=== PATIENT | male | born 1950 | race Hispanic/Latino ===

== ENCOUNTER 2020-01-04 20:37 | Inpatient (IN) | payer OTHER ==
[2020-01-04] MEDS ORDERED: NA CHLORIDE 0.9% 500 ML ONE (20:52)
[2020-01-04 21:11] LABS: Absolute Lymphocytes (CBC) 2.1 K/uL (0.7-4.9); Basophils % 0.8 % (0-1.3); Hematocrit 35.9 % (39.6-49.0); Lymphocytes % 19.4 % (15.3-44.8); MPV 11.3 fL (7.6-11.3); RBC Red Blood Cell Count 4.48 M/uL (4.33-5.43)
[2020-01-04 21:15] LABS: Protime INR 1.18
[2020-01-04 21:52] LABS: BUN Blood Urea Nitrogen 12 mg/dL (7-18); Bicarbonate 27 mmol/L (21-32); Glucose Level 74 mg/dL (74-106); Magnesium 2.4 mg/dL (1.8-2.4); Potassium 3.7 mmol/L (3.5-5.1); Sodium Level 139 mmol/L (136-145)
[2020-01-04 21:54] LABS: Creatine Phosphokinase 9786 U/L (39-308)
--- NOTE | 2020-01-04 22:33 | RAD REPORT ---
EXAM DESCRIPTION: CT - Abdomen Pelvis W Contrast - 01/04/2020 10:08 pm CLINICAL HISTORY: abd pain, lower ext weakness COMPARISON: CTANGIO CHEST FOR PE dated 11/09/2015 TECHNIQUE: Biphasic, helical CT imaging of the abdomen and pelvis was performed following 100 ml non -ionic IV contrast. No oral contrast administered. All CT scans are performed using dose optimization technique as appropriate and may include automated exposure control or mA/KV adjustment according to patient size. FINDINGS: Heart size is upper normal. No pericardial effusion. Left hemidiaphragm elevation is prese nt new from prior imaging. Posterior gutter opacification on the left is present new from prior imagi ng. This is probably chronic atelectasis given the left hemidiaphragm elevation. Infiltrate or mass a re considered unlikely. Trace left pleural effusion. The liver, spleen, and pancreas show no suspicious findings. Well filled gallbladder shows questionab le wall thickening. Upper abdominal motion degradation limits assessment. The 10 millimeter gallstone is evident. Additional stones could be occult. No biliary tree dilatation. Duct stones can be occult . . Symmetric renal function is seen with no hydronephrosis or suspicious renal mass. No pyelonephritis o r acute parenchymal process. A 2.5 centimeter lower pole left renal cyst is present. No urinary bladd er abnormality. No adrenal abnormalities. No gastric dilatation or wall thickening. No small bowel abnormality seen. Acute colon process is not seen. Sigmoid colon is tortuous and redundant extending well into the upper left abdomen. No free air, free fluid or inflammatory stranding. No hernia, mass or bulky lymphadenopathy. No suspicious bony findings. Prominent aortic atherosclerotic calcifications are present. There is mural thrombus causing narrowin g of the infrarenal aortic lumen. Significant left iliac stenoses present. IMPRESSION: No bowel obstruction, free air or surgically emergent finding. At least 1 gallstone is identified. Additional stones could be occult. Gallbladder wall thickening is suspected but limited in evaluation due to significant upper abdominal respiratory motion artifact. No biliary tree abnormality or pancreatic abnormality. Significant left hemidiaphragm elevation new from 2015. Posterior gutter opacification on the left is favored to be chronic atelectasis rather than mass or infiltrate. Prominent aortoiliac atherosclerotic calcifications with left-side iliac significant stenoses present .
[2020-01-04] MEDS ORDERED: NA CHLORIDE 0.9% 1,000 ML ONE (22:53)
[2020-01-04] MEDS ORDERED: CEFTRIAXONE/SWI 1gm 1 GM/10 ML SYR ONE (22:53)
--- NOTE | 2020-01-04 23:11 | ER ---
Nurse's Notes [facility] Name: Jaskaran Rahman Age: 69 yrs Sex: Male : 1950 Arrival Date: 01/04/2020 Time: 20:38 Bed 6 Private MD: Diagnosis: Weakness;Rhabdomyolysis;Streptococcal pharyngitis;Gallbladder wall thickening, borderline, unspecified Presentation: 01/03 20:39 Chief complaint: EMS states: Patient has been falling few times during the day and ao states that his lower extremities are getting weaker. Per EMS patient has fall few time during the day. Coronavirus screen: Proceed with normal triage. Patient denies a cough. Patient denies shortness of breath or difficulty breathing. Patient denies measured and/or subjective temperature greater than 100.4F prior to today's visit. Patient denies travel on a cruise ship or to a country the [facility] currently lists as an affected area. Patient denies contact with known and/or suspected case of COVID-19. Ebola Screen: Patient negative for fever greater than or equal to 101.5 degrees Fahrenheit, and additional compatible Ebola Virus Disease symptoms Patient denies exposure to infectious person. Patient denies travel to an Ebola-affected area in the 21 days before illness onset. Initial Sepsis Screen: Does the patient meet any 2 criteria? No. Patient's initial sepsis screen is negative. Does the patient have a suspected source of infection? No. Patient's initial sepsis screen is negative. Risk Assessment: Do you want to hurt yourself or someone else? Patient reports no desire to harm self or others. Onset of symptoms is unknown. 20:39 Method Of Arrival: EMS: [facility] ao 20:39 Acuity: DARYN 3 ao Triage Assessment: 20:45 General: Appears in no apparent distress. comfortable, well groomed, well developed, ao well nourished, Behavior is calm, cooperative, appropriate for age. Pain: Denies pain. EENT: No signs and/or symptoms were reported regarding the EENT system. Neuro: Level of Consciousness is awake, alert, obeys commands, Oriented to person, place, time, situation, Appropriate for age Weakness Reports weakness General weakness. Cardiovascular: Capillary refill < 3 seconds Patient's skin is warm and dry. Respiratory: Airway is patent Respiratory effort is even, unlabored, Respiratory pattern is regular, symmetrical. GI: Abdomen is non-distended. : No signs and/or symptoms were reported regarding the genitourinary system. Derm: Skin is intact, Skin is dry, Skin is pink, warm \T\ dry. normal, Skin temperature is warm. Musculoskeletal: Reports weakness in Genral weakness. Historical: - Allergies: 20:44 No Known Allergies; ao - Home Meds: 20:44 Unable to obtain [Active]; ao - PMHx: 20:44 Unable to obtain; ao - PSHx: 20:44 Unable to obtain; ao - Immunization history:: Adult Immunizations up to date. - Social history:: Smoking status: Patient/guardian denies using tobacco, Patient/guardian denies using alcohol. - Family history:: not pertinent. - Hospitalizations: : No recent hospitalization is reported. Screenin:45 Abuse screen: Denies threats or abuse. Denies injuries from another. Nutritional ao screening: No deficits noted. Tuberculosis screening: No symptoms or risk factors identified. Fall Risk Fall in past 12 months (25 points). No secondary diagnosis (0 pts). No IV (0 pts). Ambulatory Aid- Crutches/Cane/Walker (15 pts). Gait- Weak (10 pts.). Mental Status- Overestimates/Forgets Limitations (15 pts.). Total Wren Fall Scale indicates High Risk Score (45 or more points). Fall prevention measures have been instituted. Side Rails Up X 2 Placed Close to Nursing Station Frequent Obs/Assessments Occuring As available patient and family educated on Fall Prevention Program and Strategies. Assessment: 20:47 General: See triage assessment. ao 21:30 Reassessment: Patient appears in no apparent distress at this time. Patient is alert, rr5 oriented x 3, equal unlabored respirations, skin warm/dry/pink. swabs done and sent to laboratory awaiting for all the results to come back. no complaints made. 22:50 Reassessment: Patient appears in no apparent distress at this time. Patient is alert, rr5 oriented x 3, equal unlabored respirations, skin warm/dry/pink. ultrasound at bedside. 23:05 Reassessment: Patient appears in no apparent distress at this time. Patient is alert, rr5 oriented x 3, equal unlabored respirations, skin warm/dry/pink. review done by ED provider, advised for admission, patient agreed for the plan of care. Patient states feeling better. 01/04 00:00 Reassessment: Patient appears in no apparent distress at this time. Patient is alert, rr5 oriented x 3, equal unlabored respirations, skin warm/dry/pink. hospitalist at bedside examining the patient. 00:40 Reassessment: Patient appears in no apparent distress at this time. Patient is alert, rr5 oriented x 3, equal unlabored respirations, skin warm/dry/pink. transferred to room 209 awake alert, vital signs stable. no complaints made. Vital Signs: 01/03 20:39 BP 161 / 83; Pulse 85; Resp 16; Temp 98.5(TE); Pulse Ox 100% on R/A; Weight 81.65 kg ao (R); Height 5 ft. 7 in. (170.18 cm) (R); Pain 0/10; 21:45 BP 146 / 77; Pulse 80; Resp 17; Pulse Ox 99% on R/A; rr5 22:30 BP 133 / 70; Pulse 89; Resp 17; Pulse Ox 98% on R/A; rr5 23:50 BP 125 / 70; Pulse 84; Resp 16; Temp 98.4; Pulse Ox 99% on R/A; rr5 01/04 00:35 BP 139 / 71; Pulse 90; Resp 17; Pulse Ox 98% on R/A; rr5 01/03 20:39 Body Mass Index 28.19 (81.65 kg, 170.18 cm) ao ED Course: 01/03 20:00 Inserted saline lock: 20 gauge in left forearm, using aseptic technique. Blood ao collected. 20:38 Patient arrived in ED. ao 20:38 Lucho Rodas MD is Attending Physician. rn 20:43 Triage completed. ao 20:44 Arm band placed on right wrist. Patient placed in an exam room, on a stretcher, on ao pocket marker, on pulse oximetry, Patient notified of wait time. 20:47 Patient has correct armband on for positive identification. instrument repairer on. Pulse ao ox on. NIBP on. 20:50 Kike Yost, RN is Primary Nurse. ao 21:05 Radiology exam delayed due to lab results not completed at this time. (BUN/Creatinine). vm2 21:06 CBC with Diff Sent. ao 21:06 Basic Metabolic Panel Sent. ao 21:06 Ptt, Activated Sent. ao 21:06 Protime (+inr) Sent. ao 21:07 Magnesium Sent. ao 21:07 CK Sent. ao 21:20 Radiology exam delayed due to lab results not completed at this time. (BUN/Creatinine). vm2 21:30 Flu and/or RSV swab sent to lab. Strep swab sent to lab. rr5 22:09 CT Abd/Pelvis - IV Contrast Only In Process Unspecified. EDMS 23:03 US Abdomen Limited In Process Unspecified. EDMS 23:09 Bao Deshpande MD is Hospitalizing Provider. rn 01/04 00:00 No provider procedures requiring assistance completed. Patient admitted, IV remains in rr5 place. intact, No redness/swelling at site. 00:02 Repeat lab(s) drawn. by me, sent to lab. EKG done, by ED staff, reviewed by Lucho weaver MD. 00:04 EKG done, by ED staff, reviewed by Lucho Rodas MD. jd3 Administered Medications: 01/03 21:06 Drug: NS 0.9% 500 ml Route: IV; Rate: bolus; Site: right forearm; ao 21:32 Follow up: Response: No adverse reaction; IV Status: Completed infusion; IV Intake: rr5 500ml 23:10 Drug: NS 0.9% 1000 ml Route: IV; Rate: 125 ml/hr; Site: left antecubital; rr5 01/04 00:16 Follow up: Response: No adverse reaction; IV Status: Infusion continued upon admission; rr5 IV Intake: 125ml 01/03 23:12 Drug: Rocephin - (cefTRIAXone) 1 grams Route: IVPB; Infused Over: 30 mins; Site: left rr5 forearm; 01/04 00:00 Follow up: Response: No adverse reaction; IV Status: Completed infusion; IV Intake: [id number] Intake: 01/03 21:32 IV: 500ml; Total: 500ml. rr5 01/04 00:00 IV: 50ml; Total: 550ml. rr5 00:16 IV: 125ml; Total: 675ml. rr5 Outcome: 01/03 23:10 Decision to Hospitalize by Provider. rn 01/04 00:14 Admitted to Med/surg accompanied by nurse, via stretcher, room 209, with chart, Report rr5 called to anabelle Condition: stable Instructed on the need for admit. 00:56 Patient left the ED. rr5 Signatures: Dispatcher [employer] EDLucho Sharp MD MD rn Ortiz, Alex, RN RN ao McGuire, Victoria 2 Liam Alcantara RN RN jBenjamin Green RN RN rr5 Corrections: (The following items were deleted from the chart) 00:03 00:02 Repeat lab(s) drawn. by me, sent to lab. EKG done, rr5 rr5
--- NOTE | 2020-01-04 23:11 | RAD REPORT ---
EXAM DESCRIPTION: US - Abdomen Exam Limited - 01/04/2020 11:03 pm CLINICAL HISTORY: eval for cholecystitis;Abd pain Abdominal pain COMPARISON: No comparisons FINDINGS: The gallbladder demonstrates tiny punctate calculi. No pericholecystic fluid or gallbladde r wall thickening. The common bile duct is normal measuring 4 mm. The liver demonstrates no findings of intrahepatic biliary dilatation. IMPRESSION: Small sandlike gallstones likely present. No evidence of cholecystitis.
--- NOTE | 2020-01-04 23:11 | EDPHYS ---
Physician Documentation [facility] Name: Jaskaran Rahman Age: 69 yrs Sex: Male : 1950 Arrival Date: 01/04/2020 Time: 20:38 Bed 6 Private MD: ED Physician Lucho Rodas HPI: 01/03 20:54 This 69 yrs old Male presents to ER via EMS with complaints of General rn Weakness. 20:54 Reports all day today feeling weak, reports thighs feel like he has been walking all rn day long but states hasn't done much. No fall or recent trauma. Reports earlier was using bathroom, felt discomfort in abdomen, unable to use bathroom and discomfort went away, so tried to stand up, felt weak, tried to use walker but still weak. Called EMS 3 times today for lift assist, able to ambulate but not able to stand up off ground by himself. No bowel or bladder incontinence or retention, no known back or spinal issues. No IV drug use. No back pain.. Onset: The symptoms/episode began/occurred this morning. Severity of symptoms: At their worst the symptoms were moderate in the emergency department the symptoms are unchanged. The patient has not experienced similar symptoms in the past. The patient has not recently seen a physician. Historical: - Allergies: 20:44 No Known Allergies; ao - Home Meds: 20:44 Unable to obtain [Active]; ao - PMHx: 20:44 Unable to obtain; ao - PSHx: 20:44 Unable to obtain; ao - Immunization history:: Adult Immunizations up to date. - Social history:: Smoking status: Patient/guardian denies using tobacco, Patient/guardian denies using alcohol. - Family history:: not pertinent. - Hospitalizations: : No recent hospitalization is reported. ROS: 20:54 Constitutional: Negative for fever, chills, and weight loss, Eyes: Negative for injury, rn pain, redness, and discharge, Neck: Negative for injury, pain, and swelling, Cardiovascular: Negative for chest pain, palpitations, and edema, Respiratory: Negative for shortness of breath, cough, wheezing, and pleuritic chest pain, Abdomen/GI: Negative for abdominal pain, nausea, vomiting, diarrhea, and constipation, Back: Negative for injury and pain, MS/Extremity: Negative for injury and deformity, Skin: Negative for injury, rash, and discoloration, Neuro: Negative for headache, numbness, tingling, and seizure. Exam: 20:54 Constitutional: This is a well developed, well nourished patient who is awake, alert, rn and in no acute distress. Head/Face: Normocephalic, atraumatic. ENT: dry MM Neck: Trachea midline, no thyromegaly or masses palpated, and no cervical lymphadenopathy. Supple, full range of motion without nuchal rigidity, or vertebral point tenderness. No Meningismus. Cardiovascular: Regular rate and rhythm. No pulse deficits. Respiratory: No increased work of breathing, no retractions or nasal flaring. Abdomen/GI: soft, non-tender Back: No spinal tenderness. No costovertebral tenderness. Full range of motion. MS/ Extremity: Pulses equal, no cyanosis. Neurovascular intact. Full, normal range of motion. Equal circumference. Able to flex and extend at hips and knees normally. No focal tenderness or hemtoma. Neuro: Awake and alert, GCS 15, oriented to person, place, time, and situation. Cranial nerves II-XII grossly intact. Motor strength 4/5 bilateral lower ext, 5/5 upper extremities. Sensory grossly intact. 01/04 00:04 ECG was reviewed by the Attending Physician. rn Vital Signs: 01/03 20:39 BP 161 / 83; Pulse 85; Resp 16; Temp 98.5(TE); Pulse Ox 100% on R/A; Weight 81.65 kg ao (R); Height 5 ft. 7 in. (170.18 cm) (R); Pain 0/10; 21:45 BP 146 / 77; Pulse 80; Resp 17; Pulse Ox 99% on R/A; rr5 22:30 BP 133 / 70; Pulse 89; Resp 17; Pulse Ox 98% on R/A; rr5 23:50 BP 125 / 70; Pulse 84; Resp 16; Temp 98.4; Pulse Ox 99% on R/A; rr5 01/04 00:35 BP 139 / 71; Pulse 90; Resp 17; Pulse Ox 98% on R/A; rr5 01/03 20:39 Body Mass Index 28.19 (81.65 kg, 170.18 cm) ao MDM: 01/03 20:38 Patient medically screened. rn 23:00 ED course: Patient + for strep, elevated CK concerning for rhabdomyolysis given muscle rn aches and weakness. CT showed possible gallbladder wall thickening, u/s performed, no stones seen, no PCF, borderline thickening, but no overt signs of cholecystitis. Will admit for rhabdomyolysis, and further hydration in addition to surgical consult tomorrow for possible early cholecystitis with repeat u/s and labs. . 23:08 Differential Diagnosis rhabdomyolysis, early cholecystitis, dehydration, strep, viral rn syndrome. Data reviewed: vital signs, nurses notes, lab test result(s), radiologic studies, CT scan, ultrasound, and as a result, I will admit patient. Counseling: I had a detailed discussion with the patient and/or guardian regarding: the historical points, exam findings, and any diagnostic results supporting the discharge/admit diagnosis, lab results, radiology results, the need for further work-up and treatment in the hospital. Response to treatment: the patient's symptoms have mildly improved after treatment, and as a result, I will admit patient. Admission orders: after a detailed discussion of the patient's condition and case, the admit orders are written by me. 23:08 ED course: Spoke with Dr. larios, will admit for hydration/rhabdo, and eval further rn tomorrow regarding gallbladder wall thickening and need for surgical consult. . 01/03 20:40 Order name: CBC with Diff; Complete Time: 21:16 rn 01/03 20:40 Order name: Basic Metabolic Panel; Complete Time: 23:38 rn 01/03 20:40 Order name: Protime (+inr); Complete Time: 22:35 rn 01/03 20:40 Order name: Ptt, Activated; Complete Time: 22:35 rn 01/03 20:40 Order name: CK; Complete Time: 23:38 rn 01/03 20:40 Order name: Urine Microscopic Only; Complete Time: 23:38 rn 01/03 20:40 Order name: Magnesium; Complete Time: 23:38 rn 01/03 21:16 Order name: Flu; Complete Time: 22:35 rn 01/03 21:16 Order name: Strep; Complete Time: 22:35 rn 01/03 22:51 Order name: Liver (Hepatic) Function; Complete Time: 23:38 [facility] 01/03 22:51 Order name: Lipase; Complete Time: 23:38 EDMS 01/03 23:39 Order name: Thyroid Stimulating Hormone [facility] 01/03 20:40 Order name: CT Abd/Pelvis - IV Contrast Only; Complete Time: 22:35 rn 01/03 22:41 Order name: US Abdomen Limited; Complete Time: 23:13 rn 01/03 23:38 Order name: Thorax Wo Con [facility] 01/03 23:38 Order name: CONS Pharmacy Consult [facility] 01/03 23:39 Order name: Troponin I [facility] 01/03 23:39 Order name: Lipase [facility] 01/03 23:39 Order name: Creatine Phosphokinase [facility] 01/03 23:39 Order name: Creatine Phosphokinase [facility] 01/03 23:39 Order name: Creatine Phosphokinase [facility] 01/03 23:39 Order name: Creatine Phosphokinase [facility] 01/03 23:40 Order name: NT PRO-BNP [facility] 01/03 23:49 Order name: Urine Dipstick--Ancillary (enter results) [facility] 01/04 00:18 Order name: Urine Dipstick-Ancillary [facility] 01/03 20:40 Order name: IV Start; Complete Time: 21:07 rn 01/03 20:40 Order name: Urine Dipstick-Ancillary (obtain specimen); Complete Time: 23:14 rn 01/03 23:38 Order name: CONS Physician Consult [facility] 01/03 23:38 Order name: CONS Physician Consult [facility] 01/03 23:38 Order name: Occupational Therapy Consult [facility] 01/03 23:38 Order name: Physical Therapy Consult [facility] 01/03 23:53 Order name: EKG; Complete Time: 23:54 rn 01/03 23:53 Order name: EKG - Nurse/Tech; Complete Time: 00:02 rn EC/14 00:04 Rate is 87 beats/min. Rhythm is regular. QRS [place] is Normal. MN interval is normal. QRS rn interval is normal. QT interval is normal. No Q waves. T waves are Normal. No ST changes noted. Clinical impression: Normal ECG. Interpreted by me. Reviewed by me. Administered Medications: 01/03 21:06 Drug: NS 0.9% 500 ml Route: IV; Rate: bolus; Site: right forearm; ao 21:32 Follow up: Response: No adverse reaction; IV Status: Completed infusion; IV Intake: rr5 500ml 23:10 Drug: NS 0.9% 1000 ml Route: IV; Rate: 125 ml/hr; Site: left antecubital; rr5 01/04 00:16 Follow up: Response: No adverse reaction; IV Status: Infusion continued upon admission; rr5 IV Intake: 125ml 01/03 23:12 Drug: Rocephin - (cefTRIAXone) 1 grams Route: IVPB; Infused Over: 30 mins; Site: left rr5 forearm; 01/04 00:00 Follow up: Response: No adverse reaction; IV Status: Completed infusion; IV Intake: [id number] Disposition: 01/04/20 23:10 Hospitalization ordered by Bao Larios for Inpatient Admission. Preliminary diagnosis are Weakness, Rhabdomyolysis, Streptococcal pharyngitis, Gallbladder wall thickening, borderline, unspecified. - Bed requested for Telemetry/MedSurg (Inpatient). - Status is Inpatient Admission. rr5 - Condition is Stable. - Problem is new. - Symptoms have improved. Signatures: Dispatcher [employer] EDCO Willow Cavazos RN RN mw Nieto, Roman, MD MD rn Ortiz, Alex, RN RN ao Roque, Raymond, RN RN rr5 Corrections: (The following items were deleted from the chart) 01/03 22:51 22:37 HEPATIC FUNCTION+C.LAB.BRZ ordered. [facility] EDCO 22:51 22:37 LIPASE+C.LAB.BRZ ordered. [facility] EDCO 23:42 23:10 Hospitalization Ordered by Bao Larios MD for Inpatient Admission. Preliminary mw diagnosis is Weakness; Rhabdomyolysis; Streptococcal pharyngitis; Gallbladder wall thickening, borderline, unspecified. Bed requested for Telemetry/MedSurg (Inpatient). Status is Inpatient Admission. Condition is Stable. Problem is new. Symptoms have improved. rn 01/04 00:56 01/03 23:42 01/04/2020 23:10 Hospitalization Ordered by Bao Larios MD for Inpatient rr5 Admission. Preliminary diagnosis is Weakness; Rhabdomyolysis; Streptococcal pharyngitis; Gallbladder wall thickening, borderline, unspecified. Bed requested for Telemetry/MedSurg (Inpatient). Status is Inpatient Admission. Condition is Stable. Problem is new. Symptoms have improved. mw
[2020-01-04] MEDS ORDERED: HYDRALAZINE HCL 20 MG/ML VIAL IV PRN (23:30)
[2020-01-04] MEDS ORDERED: ALBUTEROL 2.5 MG/3 ML NEB SOL NEB PRN (23:30)
[2020-01-04] MEDS ORDERED: MORPHINE 2 MG/ML SYR IV PRN (23:30)
[2020-01-04] MEDS ORDERED: Oxycodone HCl/Acetaminophen 1 TAB TAB PO PRN (23:30)
[2020-01-04] MEDS ORDERED: ACETAMINOPHEN 325 MG TABLET PO PRN (23:30)
[2020-01-04] MEDS ORDERED: GLUCAGON 1 MG/VIAL IM PRN (23:31)
[2020-01-04 23:32] LABS: Urine Bacteria <20 /HPF (NONE SEEN); Urine Culture Reflex Order NOT NEEDED; Urine RBC NONE SEEN /HPF (NONE SEEN); Urine Urothelial Cells <5 /HPF (NONE SEEN)
[2020-01-04] MEDS ORDERED: ONDANSETRON 4 MG/2 ML VIAL IV PRN (23:34)
[2020-01-04 23:36] LABS: ALT/SGPT 156 U/L (12-78); AST/SGOT 157 U/L (15-37); Alkaline Phosphatase 60 U/L (45-117); Bilirubin Direct 0.2 mg/dL (0-0.2); Bilirubin Total 0.7 mg/dL (0.2-1.0); Lipase 126 U/L (73-393); Protein, Total 6.8 g/dL (6.4-8.2)
--- NOTE | 2020-01-04 23:45 | P.HP ---
Certification for Inpatient With expected LOS: >2 Midnights Patient will require the following post-hospital care: Retirement Practitioner: I am a practitioner with admitting privileges, knowledge of patient current condition, hospital course, and medical plan of care. Services: Services provided to patient in accordance with Admission requirements found in Title 42 Section 412.3 of the Code of Federal Regulations Patient History Date of Service: 01/05/20 Reason for admission: Fall with weakness History of Present Illness: 69-year-old male with past medical history of HTN, systolic CHF-unknown recent EF,s/p prossible CAD ? [place] in 2016, HLD presumed on statin with low-dose gabbi last discharge records admitted because of progressive weakness, difficulty with ambulation, well as recurrent falls requiring 3 EMS visits to get him up from the floor since the last 24 hr . Patient was eventually brought in because of persistent weakness. He denies any fever or cough he denies any chills. He denies any new skin rash. He states he has not seen a physician in the last 4 years. However he takes his 6 meds which were refills sent to his pharmacy since 4 years ago. He is an extremely poor historian. He is unable to tell which medications he actually takes at home and he did not bring them with him.. On presentation he was noted with marked elevated CK level of greater than 9000. He denies abdominal discomfort or pain. He denies any vomiting or diarrhea but admits to transient nausea yesterday. He denies any cough, chest pain or sputum. CT of the abdomen shows multiple gallstones with mild thickening with no direct evidence of acute cholecystitis. Right upper quadrant ulcer sound also showing borderline findings for cholecystitis. Allergies No Known Allergies Allergy (Unverified 11/10/15 17:41) Home Medications: Simvastatin [Zocor] 20 mg PO BEDTIME 11/09/15 Amlodipine [Norvasc] 5 mg PO DAILY 11/10/15 - Past Medical/Surgical History Has patient received pneumonia vaccine in the past: No Diabetic: No -: HTN -: high cholesterol -: unsure if he has coronary artery disease -: hemmoroidectomy 1989 - Family History Father -: Heart disease, Hypertension, Stroke, Cancer Mother -: Other (see notes) Notes: unknown - Social History Smoking Status: Never smoker Alcohol use: No CD- Drugs: No Caffeine use: Yes Place of Residence: Home (He lives by himself) Review of Systems 10-point ROS is otherwise unremarkable Physical Examination - Physical Exam General: Alert, Oriented x3 HEENT: Atraumatic, Normocephalic, PERRLA Neck: Supple, 2+ carotid pulse no bruit Respiratory: Clear to auscultation bilaterally, Normal air movement Cardiovascular: No edema, Normal pulses, Regular rate/rhythm Capillary refill: <2 Seconds Gastrointestinal: Normal bowel sounds, Soft and benign, Non-distended, No ascites, No tenderness Musculoskeletal: No clubbing, No swelling Integumentary: No rashes, No breakdown Neurological: Normal speech, Abnormal gait - Studies Laboratory Data (last 24 hrs) 01/04/20 22:37: Total Bilirubin Cancelled, AST Cancelled, ALT Cancelled, Alkaline Phosphatase Cancelled, Lipase Cancelled 01/04/20 21:00: PT 13.9 H, INR 1.18, APTT 29.2 01/04/20 21:00: Sodium 139, Potassium 3.7, BUN 12, Creatinine 0.56, Glucose 74, Magnesium 2.4, Total Bilirubin 0.7, AST 157 H, ALT 156 H, Alkaline Phosphatase 60, Lipase 126 01/04/20 21:00: WBC 11.0 H, Hgb 11.3 L, Hct 35.9 L, Plt Count 272 Microbiology Data (last 24 hrs): 01/04/20 21:30 Throat Group A Streptococcus Rapid Screen - Final 01/04/20 21:30 Nasopharnyx Influenza Type A Antigen Screen - Final 01/04/20 21:30 Nasopharnyx Influenza Type B Antigen Screen - Final Assessment and Plan - Problems (Diagnosis) (1) Rhabdomyolysis due to statin therapy Current Visit: Yes Status: Acute (2) Cholecystitis Current Visit: Yes Status: Acute - Advance Directives Does patient have a Living Will: No Does patient have a Durable POA for Healthcare: No Physician Review: Patient Assessed, Agree with Above Assessment and Plan Physician Review Additional Text: # Rhabdomyolysis-possibly due to statin therapy and recurrent falls -we will hold Zocor for now he if he is actually on it. -start gentle IV fluid with lactated Ringer's for now -will monitor low glucose levels -will consult Nephrology to follow trend -might need sodium bicarb and p.r.n. Lasix if non improving CK with IV fluid -history of systolic CHF noted, will monitor all volume status and avoid fluid overload # Progressive weakness-unclear etiology, follow tsh -may be due to cholecystitis -obtain troponin as well as stat EKG now Hypertension-we do IV hydralazine p.r.n. History of systolic CHF-might need repeat echo, follow volume status closely Cholelithiasis with possible cholecystitis-will consult surgery -start empirical Rocephin with Flagyl -do clear liquis for now DVT prophylaxis-subcutaneous Lovenox ADVANCED DIRECTIVE-WILL LEAVE FULL CODE
[2020-01-05 00:18] LABS: Urine Blood 2+ (NEG); Urine Glucose NEGATIVE (NEG); Urine Protein NEGATIVE (NEG)
[2020-01-05 00:38] LABS: Thyroid Stimulating Hormone 3.61 uIU/mL (0.360-3.740); Troponin I 0.42 ng/mL (0.0-0.045)
[2020-01-05 01:06] VITALS: BMI 24.9
[2020-01-05] MEDS: Ringers Lactate 1,000 ML IV SCH ×4 (01:27→23:45)
[2020-01-05 04:42] LABS: Absolute Lymphocytes (CBC) 2.5 K/uL (0.7-4.9); Basophils % 0.2 % (0-1.3); Hematocrit 36.4 % (39.6-49.0); Lymphocytes % 24.4 % (15.3-44.8); MPV 11.5 fL (7.6-11.3); RBC Red Blood Cell Count 4.54 M/uL (4.33-5.43)
[2020-01-05 05:25] LABS: ALT/SGPT 143 U/L (12-78); AST/SGOT 133 U/L (15-37); Albumin 2.7 g/dL (3.4-5.0); Alkaline Phosphatase 58 U/L (45-117); BUN Blood Urea Nitrogen 9 mg/dL (7-18); Bicarbonate 25 mmol/L (21-32); Bilirubin Total 0.6 mg/dL (0.2-1.0); Glucose Level 74 mg/dL (74-106); Potassium 3.6 mmol/L (3.5-5.1); Protein, Total 6.6 g/dL (6.4-8.2); Sodium Level 140 mmol/L (136-145); Troponin I 0.39 ng/mL (0.0-0.045)
[2020-01-05 05:36] LABS: Creatine Phosphokinase 7270 U/L (39-308)
[2020-01-05] MEDS: INSULIN -REGULAR HUMAN 50 UNIT/0.5 ML ML SQ SCH ×4 (07:30→21:00)
[2020-01-05] MEDS: D50W 25 GM/50 ML SYRINGE/VIAL IV PRN ×2 (07:38→11:59)
[2020-01-05] MEDS: FAMOTIDINE 20 MG TAB PO SCH ×2 (09:00→21:12)
[2020-01-05] MEDS ORDERED: ASPIRIN EC 81 MG TAB PO SCH (09:00)
[2020-01-05] MEDS ORDERED: ENOXAPARIN 40 MG/0.4 ML SQ SCH (09:00)
--- NOTE | 2020-01-05 11:31 | EKG ---
Test Date: 2020-01-05 Test Time: 00:04:07 Tiller Worker: RR MEASUREMENT RESULTS: Intervals: Rate: 87 MO: 160 QRSD: 96 QT: 374 QTc: 450 [place]: P: 22 MO: 160 QRS: 70 T: 85 INTERPRETIVE STATEMENTS: Normal sinus rhythm Normal ECG Compared to ECG 11/10/2015 07:06:20 Myocardial infarct finding no longer present ST (T wave) deviation no longer present Possible ischemia no longer present Electronically Signed On 01-05-20 11:29:47 CDT by Yovani Remy
--- NOTE | 2020-01-05 11:37 | RAD REPORT ---
EXAM DESCRIPTION: CT abdomen and pelvis with IV contrast CLINICAL HISTORY: 78-year-old male with lower abdominal pain since lunch today; history of previous abdominal surgery for small bowel obstruction in 2018. TECHNIQUE: Axial CT imaging of the abdomen and pelvis was performed following the administration of intravenous contrast.. Sagittal and coronal reconstructed images were then performed. The CT study is perform ed according to ALARA (as low as reasonably achievable) or ALARA/IMAGE GENTLY, with automatic adjustm ent of mA and/or kV according to patient size. Performed on: 01/05/2020 at 12:43 AM. COMPARISON: 01/23/2018 FINDINGS: Lung bases: The lung bases are clear. However, there is a large hiatal hernia containing p ortions of the stomach, multiple small bowel loops as well as portions of the pancreas and omental fa t. Liver: The liver is normal in size and configuration. No focal hepatic abnormalities are identified. Liver attenuation is within normal limits. There is a punctate calcification within the right hepatic lobe near the dome. Spleen: The spleen is surgically absent. There is a small splenule in the left upper quadrant measuri ng approximately 1.8 cm in diameter. Gallbladder and bile duct: The gallbladder is well distended and unremarkable. There is no biliary ductal dilatation. Pancreas: The pancreas is grossly unremarkable. However, a portion of the pancreas extends through th e hiatal hernia. Adrenal Glands: The adrenal glands are normal in size and configuration. Kidneys: The kidneys are normal in size and configuration. There is no evidence of hydronephrosis. Th ere are nonobstructing right renal calculi. No definite solid or cystic renal mass lesions are identi fied. Stomach: The stomach is moderately distended with oral contrast. There is a moderate hiatal hernia as described above. Bowel: There are multiple dilated fluid-filled small bowel loops in the mid to upper abdomen consiste nt with a small bowel obstruction. The transition point appears to be in the mid left hemiabdomen. Th ere is associated mesenteric edema and there is a small amount of free fluid in the pelvis. The dista l small bowel loops are normal in caliber. There appears to be a duodenal diverticulum which partiall y contains air and contrast. There is scattered colonic diverticulosis. Appendix: The appendix is normal. Free air: There is no evidence of free air. Free fluid: There is a small amount of free fluid in the pelvis. Vasculature: The aorta is normal in caliber and contour. The inferior vena cava is grossly unremarkab le. There are atherosclerotic calcifications along the abdominal aorta and proximal iliac and femoral arteries. Lymphadenopathy: No pathologic lymphadenopathy is identified. Bladder: The bladder is well distended and smooth in contour. Reproductive: The prostate gland is mildly enlarged and measures approximately 4.6 x 3.9 cm in cross- sectional diameter. Bones: There are advanced degenerative changes of the thoracolumbar spine. There are old healed fract ures of the pubic rami bilaterally. Soft tissues: There is a small fat-containing supraumbilical ventral abdominal wall hernia. There is a small fat-containing right inguinal hernia similar when compared to the prior study. IMPRESSION: 1. CT findings consistent with a small bowel obstruction. The transition point appears t o be in the mid left hemiabdomen. There is associated mesenteric edema and a small amount of free flu id in the pelvis without definite pneumoperitoneum. 2. Prior splenectomy. 3. Large hiatal hernia containing portions of the stomach, small bowel and pancreas. 4. Nonobstructing right renal calculi. 5. Colonic diverticulosis. 6. Duodenal diverticulum. 7. Advanced degenerative changes of the thoracolumbar spine and old healed pubic rami fractures bilat erally. 8. Grossly stable small fat-containing supraumbilical ventral abdominal wall hernia and fat-containin g right inguinal hernia. These critical findings were discussed with Dr. Rodas on 01/05/2020 at 1:28 AM central time Electronically signed by: Pretty Louise DO 01/05/2020 1:33 AM CDT Due to temporary technical issues with the PACS/Fluency reporting system, reports are being signed by the in house radiologist as a courtesy to ensure prompt reporting. The interpreting radiologist is f ully responsible for the content of the report.
--- NOTE | 2020-01-05 12:23 | CON ---
Date of Consultation: 01/05/2020 Brief History Of Present Illness: Patient is a 69-year-old male with a past medical history of hypertension, systolic congestive heart failure, status post possible OR in 2016, coronary artery disease, hyperlipidemia, on statins who presented to the hospital with recurrent falls, weakness, fa tigue, malaise. He denies any abdominal pain, rashes, any other significant complaints at this time, other than the fatigue and the weakness, however, he admits to not knowing much about his past medic al history as well as not knowing his current medications, his dosages. He has not seen a [facility] physician in over 4 years. He continues to get some medications at home, but cannot remember a ny of them specifically. Past Medical History: As above, hypertension, systolic congestive heart failure, coronary artery dis ease, possible OR, hyperlipidemia. Past Surgical History: Hemorrhoidectomy. Denies any other past surgeries. Allergies: NO KNOWN DRUG ALLERGIES. Home Medications: Include Zocor and Norvasc. Family History: Significant for hypertension, stroke, and cancer in his father. He stopped smoking recently, but cannot recall the details. He denies alcohol or recreational drug use. Review of Systems: A 10-point review of systems other than HPI, denies. Physical Examination: Vital Signs: At the time of my examination were a blood pressure of 143/73, heart rate was 79, respi ratory rate was 20, temperature 97.8. General: At the time of my examination, he was asleep, but arousable. He was oriented, but had very slow mentation. He is oriented to person, place, time, and event, but is very slow mentation and re quires frequent redirection. HEENT: Normocephalic. His sclerae are anicteric. His mucous membranes are moist. His oropharynx i s clear. Neck: Supple. No JVD. Chest: Normal expansion and excursion. Cardiovascular: Regular rhythm. Pulmonary: Clear to auscultation bilaterally. Normal air movement. GI: Soft, nontender, nondistended. No rebound. No guarding. No focal peritonitis. Negative El y sign. Musculoskeletal: No clubbing, cyanosis, edema. Skin: Warm and dry. Laboratory Data: Revealed a white blood cell count of 10.4, his hemoglobin is 11.4, hematocrit 36.4, platelet count is 304. His sodium was 140, potassium 3.6, chloride 107, carbon dioxide 25, BUN 9, c reatinine 0.4, glucose is 74. His calcium was 8.4, total bilirubin 0.7 on admission, 0.6 today, dire ct bilirubin 0.2. AST on admission 157, currently 133, ALT on admission 156, currently 143, alkaline phosphatase is 60 on admission, currently 58. His creatine kinase was 9786, currently 7270. Tropon in I 0.42, currently 0.39 on second check. His proBNP was 2073. His lipase is 117. His UA showed 2 + ketones, 2+ blood, otherwise normal. Imaging Studies: He had imaging performed which included a CT scan of the abdomen as well as an abdo [place] ultrasound. The CT scan was officially read the heart is upper size of normal, no pericardial effusion, left hemidiaphragm elevation is present. New from prior imaging, posterior gutter opacific ation on the left is present, new from prior imaging, probably chronic atelectasis given the left hem idiaphragm elevation. Infiltrate or mass are considered unlikely. Trace left pleural effusion. Christine er, spleen, pancreas, no suspicious findings, well filled gallbladder shows questionable wall thicken ing. Upper abdominal motion in degradation limits. Assessment; 10 mm gallstone is evident. Additio nal stones could be occult, no biliary tree dilatation. Duct stones can be occult. Symmetrical malcolm l function is seen with no hydronephrosis, suspicious renal mass. No pyelonephritis or acute parench ymal process. He has a 2.5 cm lower pole left renal cyst present. No gastric dilatation or wall thi ckening. No small bowel abnormality seen. Acute colonic process is not seen. Sigmoid colon is tort uous and redundant, extending well into the upper left abdomen. No free air, free fluid, or inflamma tory stranding. No hernias, mass, or bulky lymphadenopathy. No suspicious bony findings. Prominent aortic atherosclerotic calcifications are present. Mural thrombus causing narrowing of the infraren al aortic lumen. Significant left iliac stenosis present. His ultrasound was officially read as wel l following the CT scan. The official dictation is, the gallbladder demonstrates tiny punctate calcu li. No pericholecystic fluid or gallbladder wall thickening. The common bile duct is normal at 4 mm . The liver demonstrates no findings of intrahepatic dilatation. Impression is small sandlike galls tones present. No evidence of cholecystitis. Assessment And Plan: This is a 69-year-old male who comes in with vague findings and a possible imag ing finding concerning for cholecystitis, although given the repeat imaging and ultrasound it seems l ess likely given his clinical picture, laboratory findings, and physical exam. However, I will order a HIDA scan as a rule out/corroboration of the other findings. I have explained the risks, benefits , and alternatives of the above stated plan. Additionally, patient to get a chest CT with aortogram for better delineation of his aortoiliac disease. Continue medical management. Hold anticoagulation tomorrow possible if surgical intervention is warranted by the HIDA scan. However, I feel this is l ess likely and as such, we will likely be able to continue medical management unabated by having to h old any medications per the medical team recommendations. JAYSON/DHARMESH Voice ID: [id number] Report ID: [id number]
[2020-01-05] MEDS ORDERED: POTASSIUM CL 40 MEQ in NA CHLORIDE 0.9% 500 ML IV SCH (13:00)
[2020-01-05] MEDS: metroNIDAZOLE 500 MG TABLET PO SCH ×2 (13:08→21:12)
--- NOTE | 2020-01-05 13:30 | RAD REPORT ---
EXAM DESCRIPTION: NM - Hepatobiliary System Imagin - 01/05/2020 1:13 pm CLINICAL HISTORY: rule out cholecystitisabdominal pain, abnormal gallbladder ultrasound and CT study COMPARISON: Ultrasound January 03, CT January 03 TECHNIQUE: The patient was administered 6 mCi Tc99m Choletec . Imaging of the right upper quadrant w as performed initially for up to 60 minutes. Additional delayed imaging 2.5 hours after initial radio pharmaceutical administration was performed. FINDINGS: There is homogeneous uptake of radiopharmaceutical throughout the liver. There is no delay in visualization of the biliary tree or duodenum. Gallbladder never visualizes over the course of the examination. This can be an indicator of acute ch olecystitis in the proper clinical setting. IMPRESSION: Nonvisualization of the gallbladder. This is consistent with acute cholecystitis in the proper clinical setting. No delay in visualization of the biliary tree or duodenum.
--- NOTE | 2020-01-05 14:21 | CON ---
Date of Consultation: 01/05/2020 Reason For Consultation: Elevated BUN and creatinine and rhabdomyolysis. History Of Present Illness: This is a pleasant 69-year-old gentleman with significant past medical h istory of hypertension, congestive heart failure, unknown baseline, coronary artery disease status [place] back in 2019, hyperlipidemia, patient was brought to the hospital because of recurrent falls, f ound to have rhabdomyolysis. Patient was found to be poor compliant with doctor's visit. Upon arriv al to the hospital, patient was found to have significant elevation in CK. Patient was also found to have cholecystitis. Patient was started on IV hydration. Kidney function upon arrival within fay l limit. No proteinuria. Has blood in the urine with negative hematuria. Patient found to have als o elevation in BMP. Patient underwent CT abdomen and pelvis with IV contrast, did not show any hydro nephrosis. Also patient underwent CT chest, again this is with contrast. Past Medical History: 1.Colon artery disease complicated with congestive heart failure, unknown baseline. 2.Hypertension. 3.Hyperlipidemia. Allergies: NO KNOWN DRUG ALLERGIES. Home Medications: Include amlodipine and simvastatin. Past Surgical History: Hernia repair. Family History: Positive for hypertension, CVA. Social History: Denies smoking, denies drinking, denies drugs abuse. Review of Systems: Head and Neck: No red eye. No ear pain. GI: No nausea, no vomiting. : No polyuria, no dysuria, no hematuria. 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 Respiratory: No shortness of breath. Cardiovascular: No chest pain. Endocrine: No polydipsia. Skin: No rash. Neuro: Has recurrent falls. Musculoskeletal: Generalized body ache. Endocrine: No polydipsia. Skin: No rash. Physical Examination: Vital Signs: When I saw the patient, blood pressure 148/65, pulse of 89, afebrile. Patient had good urine output of 400. Chest: Clear to auscultation. Heart: S1, S2 regular. Abdomen: Soft, nontender. Extremities: Trace edema. Neurologic: Alert. Nonfocal. Laboratory Data: Sodium 140, potassium 3.6, bicarb 25, BUN 9, creatinine 0.4, calcium 8.4. CK 7200. TSH of 3.6. Urinalysis; specific gravity of 1.010, negative proteinuria, negative hematuria. Posi tive blood in the urine. Current Medications: 1.Aspirin. 2.Ceftriaxone. 3.Metronidazole. 4.LR at 125 per hour. 5.Pepcid. Assessment And Plan: 1.Rhabdomyolysis secondary to recurrent fall. I agree with current hydration and we will try to est ablish better electrolyte balance. 2.Hypokalemia with the presence of acute rhabdo. We will replace, continue LR for the time being. We will check for magnesium level. 3.Hypertension, controlled optimal. We will resume amlodipine for the patient. 4.Recurrent fall. Follow up with Hospitalist. SHANE Voice ID: [id number] Report ID: [id number]
[2020-01-05 14:24] LABS: Urine Protein/Creatinine Ratio 0.63 ratio (<0.15)
--- NOTE | 2020-01-05 14:26 | P.PN ---
Subjective Date of Service: 01/05/20 Chief Complaint: Fall with weakness Subjective: No new changes, No C/O voiced Physical Examination - Vital Signs Temperature: 97.8 F Blood Pressure: 148/65 Pulse: 89 Respirations: 20 Pulse Ox (%): 97 - Physical Exam General: Alert, In no apparent distress, Oriented x3 HEENT: Atraumatic, Normocephalic Neck: Supple Respiratory: Clear to auscultation bilaterally, Normal air movement Cardiovascular: Normal pulses, Regular rate/rhythm, Normal S1 S2 Gastrointestinal: Normal bowel sounds, Soft and benign, Non-distended Musculoskeletal: No clubbing, No swelling, No contractures, No erythema, No tenderness, No warmth Integumentary: No rashes Neurological: Normal speech, Normal strength at 5/5 x4 extr - Studies Laboratory Data (last 24 hrs) 01/04/20 22:37: Total Bilirubin Cancelled, AST Cancelled, ALT Cancelled, A lkaline Phosphatase Cancelled, Lipase Cancelled 01/04/20 21:00: PT 13.9 H, INR 1.18, APTT 29.2 01/04/20 21:00: Sodium 139, Potassium 3.7, BUN 12, Creatinine 0.56, Glucose 74, Magnesium 2.4, Total Bilirubin 0.7, AST 157 H, ALT 156 H, Alkaline Phosphatase 60, Lipase 126 01/04/20 21:00: WBC 11.0 H, Hgb 11.3 L, Hct 35.9 L, Plt Count 272 Microbiology Data (last 24 hrs): 01/04/20 21:30 Throat Group A Streptococcus Rapid Screen - Final 01/04/20 21:30 Nasopharnyx Influenza Type A Antigen Screen - Final 01/04/20 21:30 Nasopharnyx Influenza Type B Antigen Screen - Final Assessment & Plan - Problems (Diagnosis) (1) Cholecystitis Current Visit: Yes Status: Acute (2) Rhabdomyolysis due to statin therapy Current Visit: Yes Status: Acute (3) Abnormal EKG Onset Date: 11/10/15 Current Visit: No Status: Acute (4) CHF (congestive heart failure) Onset Date: 11/10/15 Current Visit: No Status: Acute (5) Chest pain Onset Date: 11/10/15 Current Visit: No Status: Acute (6) Elevated troponin Onset Date: 11/10/15 Current Visit: No Status: Acute (7) Pulmonary edema Onset Date: 11/10/15 Current Visit: No Status: Acute Physician Review: Patient Assessed, Agree with Above Assessment and Plan Physician Review Additional Text: Assessment Patient is a 69-year-old male with a past medical history of hypertension, hyperlipidemia, systolic heart failure who presented to the [facility] with recurrent falls. Workup in admission included a CT abdomen and chest which incidentally revealed cholelithiasis. He was also found to have rhabdomyolysis with CK level more than 7000. Rhabdomyolysis Progressive lower extremity weakness Hypertension History of systolic heart failure Cholelithiasis Plan: Continue gentle volume repletion with isotonic saline due to history of systolic heart failure Rhabdomyolysis thought to be statin-induced Zocor discontinued upon admission Cardiology has been consulted due to a rising troponin, which is most likely rhabdo induced PT/OT consulted Patient placed on ceftriaxone and Flagyl for possible biliary infection Surgery has been consulted for cholelithiasis. HIDA scan positive for acute cholecystitis. Patient has a benign abdominal exam. The defer surgical plan to General surgery DVT prophylaxis: subcutaneous Lovenox
[2020-01-05] MEDS ORDERED: ALBUTEROL 2.5 MG/3 ML NEB SOL NEB PRN (16:00)
[2020-01-05] MEDS: CEFTRIAXONE/SWI 1gm 1 GM/10 ML SYR IV SCH (21:15)
[2020-01-06] MEDS: Ringers Lactate 1,000 ML IV SCH ×4 (01:07→20:43)
[2020-01-06 04:38] LABS: Absolute Lymphocytes (CBC) 1.4 K/uL (0.7-4.9); Basophils % 1.1 % (0-1.3); Hematocrit 30.4 % (39.6-49.0); Lymphocytes % 18.6 % (15.3-44.8); RBC Red Blood Cell Count 3.78 M/uL (4.33-5.43)
[2020-01-06 05:11] LABS: Albumin 2.2 g/dL (3.4-5.0); BUN Blood Urea Nitrogen 7 mg/dL (7-18); Bicarbonate 27 mmol/L (21-32); Glucose Level 83 mg/dL (74-106); Magnesium 2.1 mg/dL (1.8-2.4); Phosphorus 3.2 mg/dL (2.5-4.9); Potassium 3.4 mmol/L (3.5-5.1); Sodium Level 141 mmol/L (136-145)
[2020-01-06 05:12] LABS: Creatine Phosphokinase 3300 U/L (39-308)
[2020-01-06] MEDS ORDERED: POTASSIUM 25 MEQ EFFERV TAB PO ONE (07:17)
[2020-01-06] MEDS: INSULIN -REGULAR HUMAN 50 UNIT/0.5 ML ML SQ SCH ×4 (07:30→21:00)
[2020-01-06] MEDS ORDERED: AMLODIPINE 5 MG TAB PO SCH (09:00)
--- NOTE | 2020-01-06 09:12 | P.PN ---
Subjective Date of Service: 01/06/20 Chief Complaint: Fall with weakness Subjective: No new changes, Tolerating diet Physical Examination - Vital Signs Temperature: 98.5 F Blood Pressure: 160/69 Pulse: 90 Respirations: 16 Pulse Ox (%): 93 - Physical Exam General: Alert, In no apparent distress, Oriented x3, Cooperative HEENT: Atraumatic, Normocephalic Neck: Supple Respiratory: Clear to auscultation bilaterally, Normal air movement Cardiovascular: No edema, Normal pulses, Regular rate/rhythm, Normal S1 S2, Other (Sternotomy scar) Gastrointestinal: Normal bowel sounds, Soft and benign, Non-distended Musculoskeletal: No clubbing, No swelling, No contractures, No erythema, No tenderness, No warmth Integumentary: No rashes, No breakdown, No significant lesion, No tenderness/swelling, No erythema, No warmth, No cyanosis Neurological: Normal speech, Normal strength at 5/5 x4 extr, Sensation intact - Studies CK 4900---> 3300 Microbiology Data (last 24 hrs): 01/04/20 21:30 Throat Group A Streptococcus Rapid Screen - Final Assessment & Plan - Problems (Diagnosis) (1) Cholecystitis Current Visit: Yes Status: Acute (2) Rhabdomyolysis due to statin therapy Current Visit: Yes Status: Acute (3) Abnormal EKG Onset Date: 11/10/15 Current Visit: No Status: Acute (4) CHF (congestive heart failure) Onset Date: 11/10/15 Current Visit: No Status: Acute (5) Chest pain Onset Date: 11/10/15 Current Visit: No Status: Acute (6) Elevated troponin Onset Date: 11/10/15 Current Visit: No Status: Acute (7) Pulmonary edema Onset Date: 11/10/15 Current Visit: No Status: Acute Physician Review: Patient Assessed, Agree with Above Assessment and Plan Physician Review Additional Text: Assessment Patient is a 69-year-old male with a past medical history of hypertension, hyperlipidemia, systolic heart failure who presented to the hospital with recurrent falls. Workup in admission included a CT abdomen and chest incidentally revealed cholelithiasis. Surgery has been consulted. He was also found to have rhabdomyolysis with CK level more than 7000. Rhabdomyolysis Progressive lower extremity weakness Hypertension History of systolic heart failure Cholelithiasis Plan: Continue gentle volume repletion with isotonic saline due to history of systolic heart failure Rhabdomyolysis thought to be statin-induced Zocor discontinued upon admission Cardiology has been consulted due to a rising troponin, which is most likely rhabdo induced PT/OT consulted Patient placed on ceftriaxone and Flagyl for possible biliary infection Surgery has been consulted for cholelithiasis. HIDA scan positive for acute cholecystitis. Patient has a benign abdominal exam. Diet advanced as tolerated. If post prandial pain, cholecystectomy will be considered DVT prophylaxis: subcutaneous Lovenox
[2020-01-06] MEDS: metroNIDAZOLE 500 MG TABLET PO SCH ×3 (10:12→20:44)
[2020-01-06] MEDS: FAMOTIDINE 20 MG TAB PO SCH ×2 (10:16→20:44)
[2020-01-06] MEDS: POTASSIUM CL 40 MEQ in NA CHLORIDE 0.9% 500 ML IV SCH ×2 (11:00→11:53)
[2020-01-06] MEDS ORDERED: Ringers Lactate 1,000 ML with POTASSIUM CL 40 MEQ IV SCH ×4 (11:00→11:32)
--- NOTE | 2020-01-06 11:36 | P.PN ---
Subjective Date of Service: 01/06/20 Chief Complaint: Fall with weakness Subjective: Improving (Patient has no pain, tolerating diet, no nausea, emesis, normal bowel function) Physical Examination - Vital Signs Temperature: 98.5 F Blood Pressure: 144/68 Pulse: 88 Respirations: 16 Pulse Ox (%): 93 - Physical Exam General: Alert, In no apparent distress, Cooperative HEENT: Mucous membr. moist/pink Gastrointestinal: Soft and benign, Non-distended, W/out succussion splash, W/out hepatosplenomegaly, W/out hepatomegaly, W/out splenomegaly, No ascites, No tenderness, No masses, No rebound, No guarding - Studies Microbiology Data (last 24 hrs): 01/04/20 21:30 Throat Group A Streptococcus Rapid Screen - Final Assessment And Plan - Plan Patient admitted with positive HIDA - HIDA results likely due to prolonged fasting, as he has no symptoms or signs of cholecystitis - advance diet - DC home from surgical standpoint, follow up with me in 1-2 weeks PRN Physician Review: Patient Assessed, Agree with Above Assessment and Plan Physician Review Additional Text: Assessment Patient is a 69-year-old male with a past medical history of hypertension, hyperlipidemia, systolic heart failure who presented to the hospital with recurrent falls. Workup in admission included a CT abdomen and chest incidentally revealed cholelithiasis. Surgery has been consulted. He was also found to have rhabdomyolysis with CK level more than 7000. Rhabdomyolysis Progressive lower extremity weakness Hypertension History of systolic heart failure Cholelithiasis Plan: Continue gentle volume repletion with isotonic saline due to history of systolic heart failure Rhabdomyolysis thought to be statin-induced Zocor discontinued upon admission Cardiology has been consulted due to a rising troponin, which is most likely rhabdo induced PT/OT consulted Patient placed on ceftriaxone and Flagyl for possible biliary infection Surgery has been consulted for cholelithiasis. HIDA scan positive for acute cholecystitis. Patient has a benign abdominal exam. Diet advanced as tolerated. If post prandial pain, cholecystectomy will be considered DVT prophylaxis: subcutaneous Lovenox
--- NOTE | 2020-01-06 13:37 | PN ---
Date of Progress Note: 01/06/2020 History Of Present Illness: Patient was admitted with rhabdomyolysis secondary to recurrent fall. T he patient was started on hydration. Kidney function did normalize. Physical Examination: Vital Signs: Blood pressure 144/68, pulse of 88 afebrile. The patient had good urine output of 1500 . Chest: Clear to auscultation. Heart: S1, S2. Regular. Abdomen: Soft, nontender. Extremity: No edema. Laboratory Data: WBC 7.8, H and H 9.7/30.4, platelets 252. Sodium 141, potassium 3.4, bicarb 27, BU N 7, creatinine 0.4, calcium 7.9, phosphorus 3.2, magnesium 2.1. CK 3300. Albumin 2.2. Current Medications: The patient is on include: Ceftriaxone, metronidazole, aspirin, amlodipine 5 m g, hydralazine p.r.n., Pepcid, and insulin. Assessment And Plan: 1.Rhabdomyolysis secondary to recurrent falls. CK started trending down. I am going to go ahead an d decrease IV fluid and we will monitor the patient. 2.Hypokalemia. We will supplement aggressively. 3.Cholecystitis. Continue current antibiotic. We will follow up with the primary. 4.Hypertension, controlled. I am going to increase the amlodipine to 10 mg for better blood pressure control. We will decrease IV fluid. SHANE Voice ID: [id number] Report ID: [id number]
[2020-01-06] MEDS: CEFTRIAXONE/SWI 1gm 1 GM/10 ML SYR IV SCH (20:44)
--- NOTE | 2020-01-07 02:44 | P.DS ---
Admission Date: 01/04/20 Discharge Date: 01/07/20 Disposition: DC HOME/HOME HEALTH CARE Discharge Condition: GOOD Reason for Admission: Fall with weakness - Problems (1) Rhabdomyolysis due to statin therapy Current Visit: Yes Status: Acute (2) Cholecystitis Current Visit: Yes Status: Acute Brief History of Present Illness: 69-year-old male with past medical history of HTN, systolic CHF-unknown recent EF,s/p prossible CAD ? [place] in 2016, HLD presumed on statin with low-dose gabbi last discharge records admitted because of progressive weakness, difficulty with ambulation, well as recurrent falls requiring 3 EMS visits to get him up from the floor since the last 24 hr . Patient was eventually brought in because of persistent weakness. He denies any fever or cough he denies any chills. He denies any new skin rash. He states he has not seen a physician in the last 4 years. However he takes his 6 meds which were refills sent to his pharmacy since 4 years ago. He is an extremely poor historian. He is unable to tell which medications he actually takes at home and he did not bring them with him.. On presentation he was noted with marked elevated CK level of greater than 9000. He denies abdominal discomfort or pain. He denies any vomiting or diarrhea but admits to transient nausea yesterday. He denies any cough, chest pain or sputum. CT of the abdomen shows multiple gallstones with mild thickening with no direct evidence of acute cholecystitis. Right upper quadrant ulcer sound also showing borderline findings for cholecystitis. Hospital Course: Patient was admitted for rhabdomyolysis , presumed cholecystitis . He had a HIDA scan done with findings of "Nonvisualization of the gallbladder. This is consistent with acute cholecystitis in the proper clinical setting.No delay in visualization of the biliary tree or duodenum". He was evaluated by surgery and felt findings was due to prolonged fasting rather than actual cholecystitis . He was coninuted on abx . surgery-Dr Jose Armando Rodrigues recommended follow up in 2 weeks . Patient was also seen by renal team and CK improved with IVF and hold of simvastatin to <3000 now . He was seen by PT and case mgt and home health as well as new PCP with Dr Limon set up for him . He will be discharge home today to finish abx course for next 7 days Vital Signs/Physical Exam: Temp Pulse Resp BP Pulse Ox 98.2 F 95 H 18 135/62 93 01/07/20 00:00 01/07/20 00:00 01/07/20 00:00 01/07/20 00:00 01/07/20 00:00 General: Alert, In no apparent distress, Oriented x3 HEENT: Atraumatic, Normocephalic Neck: Supple, 2+ carotid pulse no bruit Respiratory: Clear to auscultation bilaterally, Normal air movement Cardiovascular: Normal pulses, Regular rate/rhythm, Normal S1 S2 Gastrointestinal: Normal bowel sounds, Soft and benign Musculoskeletal: No swelling, No contractures Integumentary: No breakdown, No significant lesion Laboratory Data at Discharge: WBC 7.8 K/uL (4.3-10.9) D 01/06/20 04:20 Hgb 9.7 g/dL (13.6-17.9) L 01/06/20 04:20 Hct 30.4 % (39.6-49.0) L D 01/06/20 04:20 Plt Count 252 K/uL (152-406) 01/06/20 04:20 PT 13.9 SECONDS (9.5-12.5) H 01/04/20 21:00 INR 1.18 01/04/20 21:00 APTT 29.2 SECONDS (24.3-36.9) 01/04/20 21:00 Sodium 141 mmol/L (136-145) 01/06/20 04:20 Potassium 4.3 mmol/L (3.5-5.1) 01/06/20 15:53 BUN 7 mg/dL (7-18) 01/06/20 04:20 Creatinine 0.42 mg/dL (0.55-1.3) L 01/06/20 04:20 Glucose 83 mg/dL (74-106) 01/06/20 04:20 Phosphorus 3.2 mg/dL (2.5-4.9) 01/06/20 04:20 Magnesium 2.1 mg/dL (1.8-2.4) 01/06/20 04:20 Total Bilirubin 0.6 mg/dL (0.2-1.0) 01/05/20 04:20 AST 133 U/L (15-37) H 01/05/20 04:20 ALT 143 U/L (12-78) H 01/05/20 04:20 Alkaline Phosphatase 58 U/L (45-117) 01/05/20 04:20 Troponin I 0.39 ng/mL (0.0-0.045) H 01/05/20 04:20 Lipase 117 U/L (73-393) 01/04/20 23:59 Home Medications: Amlodipine Besylate [Norvasc] 10 mg PO DAILY #30 tablet 01/07/20 Aspirin 81 mg PO DAILY #30 tab.chew 01/07/20 Levofloxacin [Levaquin] 500 mg PO DAILY #6 tablet 01/07/20 Metronidazole [Flagyl] 500 mg PO TID #15 capsule 01/07/20 New Medications: Aspirin 81 mg PO DAILY #30 tab.chew Metronidazole [Flagyl] 500 mg PO TID #15 capsule Levofloxacin [Levaquin] 500 mg PO DAILY #6 tablet Amlodipine Besylate [Norvasc] 10 mg PO DAILY #30 tablet Diet: Rougon Followup: Jose Armando Rodrigues MD [ACTIVE - CAN ADMIT] - Merlin Limon MD [ACTIVE - CAN ADMIT] - Time spent managing pt's care (in minutes): 35
[2020-01-07] MEDS: Ringers Lactate 1,000 ML IV SCH ×4 (03:20→20:45)
[2020-01-07 04:14] LABS: Absolute Lymphocytes (CBC) 1.7 K/uL (0.7-4.9); Basophils % 1.2 % (0-1.3); Lymphocytes % 25.1 % (15.3-44.8); MPV 11.1 fL (7.6-11.3)
[2020-01-07 04:47] LABS: Albumin 2.5 g/dL (3.4-5.0); BUN Blood Urea Nitrogen 3 mg/dL (7-18); Bicarbonate 29 mmol/L (21-32); Glucose Level 96 mg/dL (74-106); Magnesium 2.1 mg/dL (1.8-2.4); Phosphorus 3.3 mg/dL (2.5-4.9); Potassium 4.2 mmol/L (3.5-5.1); Sodium Level 141 mmol/L (136-145)
[2020-01-07 04:57] LABS: Creatine Phosphokinase 4243 U/L (39-308)
--- NOTE | 2020-01-07 06:15 | P.PN ---
Subjective Date of Service: 01/07/20 Chief Complaint: Fall with weakness Subjective: No new changes, New changes, C/O voiced (-still feel weak -report left leg weakness with tingling pain when ambulating -reports he lives alone) Review of Systems 10-point ROS is otherwise unremarkable Physical Examination - Vital Signs Temperature: 98.2 F Blood Pressure: 135/62 Pulse: 95 Respirations: 18 Pulse Ox (%): 93 - Physical Exam General: In no apparent distress, Oriented x3 HEENT: Atraumatic, Normocephalic, PERRLA Neck: 2+ carotid pulse no bruit, JVD not distended, No Thyromegaly Respiratory: Clear to auscultation bilaterally, Normal air movement Cardiovascular: Normal pulses, Regular rate/rhythm, Normal S1 S2 Gastrointestinal: Normal bowel sounds, Soft and benign Musculoskeletal: No clubbing Neurological: Normal speech, Abnormal gait External genitalia: No edema, No lesions - Studies Microbiology Data (last 24 hrs): 01/04/20 21:30 Throat Group A Streptococcus Rapid Screen - Final Assessment And Plan - Current Problems (Diagnosis) (1) Rhabdomyolysis due to statin therapy Current Visit: Yes Status: Acute (2) Cholecystitis Current Visit: Yes Status: Acute Physician Review: Patient Assessed, Agree with Above Assessment and Plan Physician Review Additional Text: A/P Rhabdomyolysis Progressive lower extremity weakness Hypertension History of systolic heart failure Cholelithiasis Plan: -still worsening CK level - now up to 4k - will increase LR rate to 125 , start lasix to enhance tubular fluid rate and clerance of myoglobin/ck -correct k - will d/w with case mgt for possible SNF since he lives alone -c/w PT -c/w abx -possible dc in am if CK <3k DVT prophylaxis: subcutaneous Lovenox
[2020-01-07] MEDS ORDERED: FUROSEMIDE 40 MG/4 ML VIAL IV ONE (06:16)
[2020-01-07] MEDS: INSULIN -REGULAR HUMAN 50 UNIT/0.5 ML ML SQ SCH ×4 (07:30→20:47)
[2020-01-07] MEDS: FAMOTIDINE 20 MG TAB PO SCH ×2 (07:33→20:44)
[2020-01-07] MEDS: metroNIDAZOLE 500 MG TABLET PO SCH ×3 (07:33→20:44)
[2020-01-07] MEDS: AMLODIPINE 10 MG TAB PO SCH (07:33)
[2020-01-07 10:47] LABS: Albumin 2.5 g/dL (3.4-5.0); Bilirubin Direct 0.1 mg/dL (0-0.2); Bilirubin Total 0.4 mg/dL (0.2-1.0); Protein, Total 6.2 g/dL (6.4-8.2)
--- NOTE | 2020-01-07 11:33 | PN ---
Date of Progress Note: 01/07/2020 Subjective: Patient was admitted with rhabdomyolysis secondary to recurrent fall. Patient was start ed on hydration. CK started trending down, yesterday bounce back. Yesterday, we decreased the fluid from 125 to 100. Hypokalemia be replaced aggressively. Physical Examination: Vital Signs: Blood pressure 131/73, pulse of 100, afebrile. Patient had good urine output of 1500, positive of 1900. Chest: Clear to auscultation. Heart: S1, S2. Regular. Abdomen: Soft, nontender. Extremities: No edema. Laboratory Data: WBC 6.7, H and H 10.7/34, platelets 314. Sodium 144, potassium 4.2, bicarb 29, BUN 3, creatinine 0.4, calcium 8.4, phosphorus 3.3, magnesium 2.1. CK 4200. Albumin 2.5. Urinalysis; specific gravity of 1.010, pH of 5, PC ratio 0.3. Current Medications: The patient on include aspirin, ceftriaxone, metronidazole, Lovenox, amlodipine 10, hydralazine p.r.n., Tylenol, Lasix, LR 150, Zofran, Pepcid, morphine. Assessment And Plan: 1.Acute kidney injury secondary to rhabdomyolysis, recovered, resolved. 2.Rhabdomyolysis secondary to recurrent fall. I agree with increasing IV fluid. Discontinue Lasix and we will monitor the patient. I am going to go ahead and repeat urinalysis to evaluate the pH of the urine. We will send for LFT to evaluate the stage of the rhabdomyolysis, and we will follow up t he patient. 3.Hypokalemia, status post supplement, resolved. 4.Rhabdomyolysis. Continue aggressive hydration. Increase IV fluid, agreed discontinue Lasix. 5.Cholecystitis. As by primary, continue current treatment. OSIRIS/DHARMESH Voice ID: [id number] Report ID: [id number]
[2020-01-07 12:32] LABS: Urine Appearance CLEAR; Urine Bilirubin NEGATIVE (NEG); Urine Blood NEGATIVE (NEG); Urine Color YELLOW; Urine Glucose NEGATIVE (NEG); Urine Protein NEGATIVE (NEG); Urine Specific Gravity <=1.005 (1.005-1.030); Urine Urobilinogen 0.2 mg/dL (0.2-1.0); Urine pH 6.5 (5.0-7.0)
[2020-01-07 12:35] LABS: Urine Microscopic Reflex NO UMIC
[2020-01-07] MEDS: CEFTRIAXONE/SWI 1gm 1 GM/10 ML SYR IV SCH (21:09)
[2020-01-08] MEDS: Ringers Lactate 1,000 ML IV SCH ×4 (03:35→20:59)
[2020-01-08 05:48] LABS: Albumin 2.3 g/dL (3.4-5.0); BUN Blood Urea Nitrogen 2 mg/dL (7-18); Bicarbonate 30 mmol/L (21-32); Glucose Level 85 mg/dL (74-106); Phosphorus 3.9 mg/dL (2.5-4.9); Potassium 3.5 mmol/L (3.5-5.1); Sodium Level 144 mmol/L (136-145)
[2020-01-08 05:50] LABS: CKMB Creatine Kinase MB 118.2 ng/mL (0.3-3.6)
[2020-01-08 06:32] LABS: Creatine Phosphokinase 3597 U/L (39-308)
[2020-01-08] MEDS: INSULIN -REGULAR HUMAN 50 UNIT/0.5 ML ML SQ SCH ×4 (07:30→21:00)
[2020-01-08] MEDS: FAMOTIDINE 20 MG TAB PO SCH ×2 (10:31→19:55)
[2020-01-08] MEDS: AMLODIPINE 10 MG TAB PO SCH (10:31)
[2020-01-08] MEDS: metroNIDAZOLE 500 MG TABLET PO SCH ×3 (10:31→19:55)
[2020-01-08] MEDS ORDERED: FUROSEMIDE 40 MG/4 ML VIAL IV ONE (11:03)
--- NOTE | 2020-01-08 11:03 | P.PN ---
Subjective Date of Service: 01/08/20 Chief Complaint: Fall with weakness Subjective pt with weakness and Rhabdomyolyis today no new complaints good UO CPK 3600 will cont IVF for now, will give lasix X1 if CPK cont to improve by tomorrow , then pt can be discharged from nephrology point of view Physical exam general: AAOX3, NAD , obese Neck; Supple, No elevated JVD hear: RRR, normal S1,2 no murmur or rub Chest: mild lt basal rales Abdomen: Soft , Nt Extremities No edema or ulcer Cholecystisits pain resolved now tolerating diet rhabdomyolysis CPK now down to 3600 cont IVF if CPK cont to improve by tomorrow , then pt can be discharged from nephrology point of view HX of CHF will give lasix X1 total time spent 35 minutes Physical Examination - Vital Signs Temperature: 98.3 F Blood Pressure: 126/67 Pulse: 80 Respirations: 20 Pulse Ox (%): 95 Assessment And Plan Physician Review: Patient Assessed, Agree with Above Assessment and Plan
--- NOTE | 2020-01-08 18:59 | P.DS ---
Admission Date: 01/04/20 Discharge Date: 01/08/20 Disposition: DC HOME/HOME HEALTH CARE Discharge Condition: GOOD Reason for Admission: Fall with weakness - Problems (1) Cholecystitis Current Visit: Yes Status: Acute (2) Rhabdomyolysis due to statin therapy Current Visit: Yes Status: Acute (3) Abnormal EKG Onset Date: 11/10/15 Current Visit: No Status: Acute (4) CHF (congestive heart failure) Onset Date: 11/10/15 Current Visit: No Status: Acute (5) Chest pain Onset Date: 11/10/15 Current Visit: No Status: Acute (6) Elevated troponin Onset Date: 11/10/15 Current Visit: No Status: Acute (7) Pulmonary edema Onset Date: 11/10/15 Current Visit: No Status: Acute Hospital Course: Patient is a 69-year-old male with a past medical history of hypertension, hyperlipidemia, systolic heart failure who presented to the hospital for recurrent falls. Workup in admission included a CT abdomen and chest incidentally revealed cholelithiasis. Surgery has been consulted. However since patient had a benign abdominal exam and no postprandial pain, surgery opted for medical management. He was also found to have rhabdomyolysis with CK level more than 7000. His CK trended down with volume repletion and he was around 3500 at the time of discharge. I was not present at the time of discharge noted at perform a physical exam. Vital Signs/Physical Exam: Temp Pulse Resp BP Pulse Ox 98.6 F 80 20 126/67 95 01/08/20 12:00 01/08/20 12:21 01/08/20 12:00 01/08/20 12:21 01/08/20 12:00 Laboratory Data at Discharge: WBC 6.7 K/uL (4.3-10.9) D 01/07/20 03:54 Hgb 10.7 g/dL (13.6-17.9) L 01/07/20 03:54 Hct 34.0 % (39.6-49.0) L 01/07/20 03:54 Plt Count 314 K/uL (152-406) D 01/07/20 03:54 PT 13.9 SECONDS (9.5-12.5) H 01/04/20 21:00 INR 1.18 01/04/20 21:00 APTT 29.2 SECONDS (24.3-36.9) 01/04/20 21:00 Sodium 144 mmol/L (136-145) 01/08/20 04:37 Potassium 3.5 mmol/L (3.5-5.1) 01/08/20 04:37 BUN 2 mg/dL (7-18) L 01/08/20 04:37 Creatinine 0.39 mg/dL (0.55-1.3) L 01/08/20 04:37 Glucose 85 mg/dL (74-106) 01/08/20 04:37 Phosphorus 3.9 mg/dL (2.5-4.9) 01/08/20 04:37 Magnesium 2.0 mg/dL (1.8-2.4) 01/08/20 04:37 Total Bilirubin 0.4 mg/dL (0.2-1.0) 01/07/20 03:54 AST 78 U/L (15-37) H 01/07/20 03:54 ALT 119 U/L (12-78) H 01/07/20 03:54 Alkaline Phosphatase 55 U/L (45-117) 01/07/20 03:54 Troponin I 0.39 ng/mL (0.0-0.045) H 01/05/20 04:20 Lipase 117 U/L (73-393) 01/04/20 23:59 Home Medications: Amlodipine Besylate [Norvasc] 10 mg PO DAILY #30 tablet 01/07/20 Aspirin 81 mg PO DAILY #30 tab.chew 01/07/20 Levofloxacin [Levaquin] 500 mg PO DAILY #6 tablet 01/07/20 Metronidazole [Flagyl] 500 mg PO TID #15 capsule 01/07/20 New Medications: Aspirin 81 mg PO DAILY #30 tab.chew Metronidazole [Flagyl] 500 mg PO TID #15 capsule Levofloxacin [Levaquin] 500 mg PO DAILY #6 tablet Amlodipine Besylate [Norvasc] 10 mg PO DAILY #30 tablet Diet: [place] Activity: Fall precautions Followup: Merlin Limon MD [ACTIVE - CAN ADMIT] - Jose Armando Rodrigues MD [ACTIVE - CAN ADMIT] -
[2020-01-08] MEDS: CEFTRIAXONE/SWI 1gm 1 GM/10 ML SYR IV SCH (21:00)
--- NOTE | 2020-01-08 21:15 | P.PN ---
Subjective Date of Service: 01/08/20 Chief Complaint: Fall with weakness Subjective: No new changes (Pain-free. Diet well tolerated. Otherwise, no acute events overnight) Physical Examination - Vital Signs Temperature: 97.1 F Blood Pressure: 123/68 Pulse: 86 Respirations: 18 Pulse Ox (%): 98 - Physical Exam General: Alert, In no apparent distress HEENT: Atraumatic, Normocephalic Neck: Supple Respiratory: Clear to auscultation bilaterally, Normal air movement Cardiovascular: No edema, Normal pulses, Regular rate/rhythm, Normal S1 S2 Gastrointestinal: Normal bowel sounds, Soft and benign, Non-distended Musculoskeletal: No clubbing, No swelling, No contractures, No erythema, No tenderness, No warmth Integumentary: No rashes, No breakdown, No significant lesion, No tenderness/swelling, No erythema, No warmth, No cyanosis Neurological: Normal speech, Sensation intact, Normal affect Assessment & Plan - Problems (Diagnosis) (1) Cholecystitis Current Visit: Yes Status: Acute (2) Rhabdomyolysis due to statin therapy Current Visit: Yes Status: Acute (3) Abnormal EKG Onset Date: 11/10/15 Current Visit: No Status: Acute (4) CHF (congestive heart failure) Onset Date: 11/10/15 Current Visit: No Status: Acute (5) Chest pain Onset Date: 11/10/15 Current Visit: No Status: Acute (6) Elevated troponin Onset Date: 11/10/15 Current Visit: No Status: Acute (7) Pulmonary edema Onset Date: 11/10/15 Current Visit: No Status: Acute Physician Review: Patient Assessed, Agree with Above Assessment and Plan Physician Review Additional Text: Assessment Patient is a 69-year-old male with a past medical history of hypertension, hyperlipidemia, systolic heart failure who presented to the hospital with recurrent falls. Workup in admission included a CT abdomen and chest incidentally revealed cholelithiasis. Surgery has been consulted, opted for medical management only as abdominal exam continues to be benign and no post prandial pain. He was also found to have rhabdomyolysis with CK level more than 7000. He is currently on LR infusion with fluctuating levels of CK Rhabdomyelitis Cholelithiasis PAUL Plan: Increase LR to 150 cc/hr Trend CK. OK to DC from renal standpoint if CK < 3000 Continue ceftriaxone and metronidazole for cholecystitis Patient may need placement to SNF DVT prophylaxis: subcutaneous Lovenox
[2020-01-09 00:59] LABS: CKMB Creatine Kinase MB 102.5 ng/mL (0.3-3.6)
[2020-01-09] MEDS: Ringers Lactate 1,000 ML IV SCH ×3 (01:31→15:20)
[2020-01-09 06:35] LABS: Albumin 2.4 g/dL (3.4-5.0); BUN Blood Urea Nitrogen 4 mg/dL (7-18); Bicarbonate 31 mmol/L (21-32); Glucose Level 91 mg/dL (74-106); Phosphorus 3.3 mg/dL (2.5-4.9); Potassium 3.9 mmol/L (3.5-5.1); Sodium Level 142 mmol/L (136-145)
[2020-01-09] MEDS: INSULIN -REGULAR HUMAN 50 UNIT/0.5 ML ML SQ SCH ×4 (07:30→21:00)
[2020-01-09] MEDS: AMLODIPINE 10 MG TAB PO SCH (09:15)
[2020-01-09] MEDS: metroNIDAZOLE 500 MG TABLET PO SCH ×3 (09:15→22:57)
[2020-01-09] MEDS: FAMOTIDINE 20 MG TAB PO SCH ×2 (09:15→22:57)
--- NOTE | 2020-01-09 11:55 | P.PN ---
Subjective Date of Service: 01/09/20 Chief Complaint: Fall with weakness Subjective pt with weakness and Rhabdomyolyis today no new complaints good UO CPK stable ~3600 Pt can be discharged from nephrology point of view Avoid Statins advised to increase fluid intake to at least 50oz daily F/U [facility] nephrology clinic in 2-3wks Physical exam general: AAOX3, NAD , obese Neck; Supple, No elevated JVD hear: RRR, normal S1,2 no murmur or rub Chest: mild lt basal rales Abdomen: Soft , Nt Extremities No edema or ulcer Cholecystisits pain resolved now tolerating diet rhabdomyolysis CPK now down to 3600 Avoid Statins advised to increase fluid intake to at least 50oz daily F/U [facility] nephrology clinic in 2-3wks HX of CHF euvolemic cont to hold lasix total time spent 35 minutes Physical Examination - Vital Signs Temperature: 97 F Blood Pressure: 140/77 Pulse: 93 Respirations: 20 Pulse Ox (%): 98 - Studies Medications List Reviewed: Yes Assessment And Plan Physician Review: Patient Assessed, Agree with Above Assessment and Plan Physician Review Additional Text: -
--- NOTE | 2020-01-09 18:14 | P.PN ---
Subjective Date of Service: 01/09/20 Chief Complaint: Fall with weakness Subjective: No new changes Physical Examination - Vital Signs Temperature: 97 F Blood Pressure: 93/57 Pulse: 83 Respirations: 20 Pulse Ox (%): 98 - Physical Exam General: Alert, In no apparent distress, Cooperative HEENT: Atraumatic, Normocephalic Neck: Supple Respiratory: Clear to auscultation bilaterally, Normal air movement Cardiovascular: No edema, Regular rate/rhythm, Systolic murmur Gastrointestinal: Normal bowel sounds, Soft and benign, Non-distended Musculoskeletal: No clubbing, No swelling, No contractures, No erythema, No tenderness, No warmth Neurological: Normal speech, Sensation intact, Normal affect - Studies Medications List Reviewed: Yes Assessment & Plan - Problems (Diagnosis) (1) Cholecystitis Current Visit: Yes Status: Acute (2) Rhabdomyolysis due to statin therapy Current Visit: Yes Status: Acute (3) Abnormal EKG Onset Date: 11/10/15 Current Visit: No Status: Acute (4) CHF (congestive heart failure) Onset Date: 11/10/15 Current Visit: No Status: Acute (5) Chest pain Onset Date: 11/10/15 Current Visit: No Status: Acute (6) Elevated troponin Onset Date: 11/10/15 Current Visit: No Status: Acute (7) Pulmonary edema Onset Date: 11/10/15 Current Visit: No Status: Acute Physician Review: Patient Assessed, Agree with Above Assessment and Plan Physician Review Additional Text: Assessment Patient is a 69-year-old male with a past medical history of hypertension, hyperlipidemia, systolic heart failure who presented to the hospital with recurrent falls. Workup in admission included a CT abdomen and chest incidentally revealed cholelithiasis. Surgery has been consulted, opted for medical management only as abdominal exam continues to be benign and no post prandial pain. He was also found to have rhabdomyolysis with CK level more than 7000. He is currently on LR infusion with downtrending but still elevated CK levels, now 3500. He has been cleared by Nephrology. However, he continues to stay until / finalizes his home health needs. Patient lives alone, has no established care with a PCP as outpatient, does not appear to have significant command of his co-morbidites or medications. He will need outpatient PT/OT, follow up with PCP for repeat CK and renal function and medication reconciliation. Rhabdomyelitis Cholelithiasis PAUL Plan: Continue LR at 150 cc/hr Trend CK. Continue ceftriaxone and metronidazole for cholecystitis Discuss with CM/SW regarding current status of outpatient resources. DVT prophylaxis: subcutaneous Lovenox
[2020-01-09] MEDS: CEFTRIAXONE/SWI 1gm 1 GM/10 ML SYR IV SCH (22:56)
[2020-01-10] MEDS: Ringers Lactate 1,000 ML IV SCH ×4 (01:46→18:20)
[2020-01-10 05:30] LABS: Albumin 2.3 g/dL (3.4-5.0); BUN Blood Urea Nitrogen 4 mg/dL (7-18); Bicarbonate 29 mmol/L (21-32); Glucose Level 92 mg/dL (74-106); Magnesium 2.1 mg/dL (1.8-2.4); Phosphorus 2.9 mg/dL (2.5-4.9); Sodium Level 143 mmol/L (136-145)
[2020-01-10 05:35] LABS: Potassium 2.9 mmol/L (3.5-5.1)
[2020-01-10] MEDS ORDERED: POTASSIUM 25 MEQ EFFERV TAB PO ONE (05:48)
[2020-01-10] MEDS: KCL 20 MEQ/100 mL IVPB 20 MEQ/100 ML BAG IV SCH ×3 (06:30→09:46)
[2020-01-10] MEDS: INSULIN -REGULAR HUMAN 50 UNIT/0.5 ML ML SQ SCH ×4 (07:30→21:00)
[2020-01-10] MEDS: FAMOTIDINE 20 MG TAB PO SCH ×2 (09:47→21:15)
[2020-01-10] MEDS: AMLODIPINE 10 MG TAB PO SCH (09:47)
[2020-01-10] MEDS: metroNIDAZOLE 500 MG TABLET PO SCH ×3 (09:47→21:15)
[2020-01-10 11:11] VITALS: O2SAT 94
--- NOTE | 2020-01-10 17:54 | P.PN ---
Subjective Date of Service: 01/10/20 Chief Complaint: Fall with weakness Subjective: No new changes, Tolerating diet (No acute overnight. No post prandial pain. No myalgia) Physical Examination - Vital Signs Temperature: 97 F Blood Pressure: 117/65 Pulse: 82 Respirations: 20 Pulse Ox (%): 95 - Physical Exam General: Alert, In no apparent distress, Cooperative HEENT: Atraumatic, Normocephalic Neck: Supple Respiratory: Clear to auscultation bilaterally, Normal air movement Cardiovascular: No edema, Normal pulses, Regular rate/rhythm, Normal S1 S2 Gastrointestinal: Normal bowel sounds, Soft and benign, Non-distended Musculoskeletal: No clubbing, No swelling, No contractures, No erythema, No tenderness, No warmth Integumentary: No rashes, No breakdown, No significant lesion, No tenderness/swelling, No erythema, No warmth, No cyanosis Neurological: Normal speech, Sensation intact, Normal affect - Studies Medications List Reviewed: Yes Assessment & Plan - Problems (Diagnosis) (1) Cholecystitis Current Visit: Yes Status: Acute (2) Rhabdomyolysis due to statin therapy Current Visit: Yes Status: Acute (3) Abnormal EKG Onset Date: 11/10/15 Current Visit: No Status: Acute (4) CHF (congestive heart failure) Onset Date: 11/10/15 Current Visit: No Status: Acute (5) Chest pain Onset Date: 11/10/15 Current Visit: No Status: Acute (6) Elevated troponin Onset Date: 11/10/15 Current Visit: No Status: Acute (7) Pulmonary edema Onset Date: 11/10/15 Current Visit: No Status: Acute Physician Review: Patient Assessed, Agree with Above Assessment and Plan Physician Review Additional Text: Assessment Patient is a 69-year-old male with a past medical history of hypertension, hyperlipidemia, systolic heart failure who presented to the hospital with recurrent falls. Workup in admission included a CT abdomen and chest incidentally revealed cholelithiasis. Surgery has been consulted, opted for medical management only as abdominal exam continues to be benign and no post prandial pain. He was also found to have rhabdomyolysis with CK level more than 7000. He is currently on LR infusion with downtrending but still elevated CK levels, now 3500. He has been cleared by Nephrology. However, he continues to stay until / finalizes his home health needs. Patient lives alone, has no established care with a PCP as outpatient, does not appear to have significant command of his co-morbidites or medications. He will need outpatient PT/OT, follow up with PCP for repeat CK and renal function and medication reconciliation. Rhabdomyelitis Cholelithiasis PAUL Plan: Patient is medically cleared. No signnificant improvement in CK levels depsite aggressive IVF. Currently on LR at 150 cc/hr Will need Nephrology clearance for discharge Rhabdo thought to be statin-induced. It's possible that he was on simvastatin but does not know Continue ceftriaxone and metronidazole for cholecystitis Will need to discuss with CM/SW regarding home health for PT/OT, caregiver. He lives alone. DVT prophylaxis: subcutaneous Lovenox
[2020-01-10] MEDS ORDERED: POTASSIUM CL SA 10 MEQ TAB PO ONE (18:00)
[2020-01-10] MEDS: CEFTRIAXONE/SWI 1gm 1 GM/10 ML SYR IV SCH (21:15)
[2020-01-10] MEDS: NA CHLORIDE 0.9% 1,000 ML IV SCH (21:15)
[2020-01-11] MEDS: NA CHLORIDE 0.9% 1,000 ML IV SCH ×3 (00:15→10:00)
[2020-01-11 05:34] LABS: BUN Blood Urea Nitrogen 6 mg/dL (7-18); Bicarbonate 27 mmol/L (21-32); Glucose Level 88 mg/dL (74-106); Potassium 3.6 mmol/L (3.5-5.1); Sodium Level 144 mmol/L (136-145)
[2020-01-11 05:37] LABS: CKMB Creatine Kinase MB 126.1 ng/mL (0.3-3.6); Creatine Phosphokinase 3678 U/L (39-308)
[2020-01-11] MEDS: INSULIN -REGULAR HUMAN 50 UNIT/0.5 ML ML SQ SCH ×2 (07:30→11:30)
[2020-01-11] MEDS: metroNIDAZOLE 500 MG TABLET PO SCH ×2 (08:57→13:14)
[2020-01-11] MEDS: FAMOTIDINE 20 MG TAB PO SCH (08:58)
[2020-01-11] MEDS: AMLODIPINE 10 MG TAB PO SCH (08:58)
[2020-01-11] MEDS ORDERED: POTASSIUM CL SA 10 MEQ TAB PO ONE (09:00)
--- NOTE | 2020-01-11 11:40 | P.DS ---
Admission Date: 01/04/20 Discharge Date: 01/11/20 Primary Care Provider: none Disposition: DC HOME/HOME HEALTH CARE Discharge Condition: GOOD Reason for Admission: Fall with weakness Consultations: Nephrology-Dr. Arceo Surgery-Dr. Rodrigues Procedures: HIDA: FINDINGS: There is homogeneous uptake of radiopharmaceutical throughout the liver. There is no delay in visualization of the biliary tree or duodenum. Gallbladder never visualizes over the course of the examination. This can be an indicator of acute cholecystitis in the proper clinical setting. IMPRESSION: Nonvisualization of the gallbladder. This is consistent with acute cholecystitis in the proper clinical setting. No delay in visualization of the biliary tree or duodenum. ABUS: FINDINGS: The gallbladder demonstrates tiny punctate calculi. No pericholecystic fluid or gallbladder wall thickening. The common bile duct is normal measuring 4 mm. The liver demonstrates no findings of intrahepatic biliary dilatation. IMPRESSION: Small sandlike gallstones likely present. No evidence of cholecystitis. CT Scan: FINDINGS: Heart size is upper normal. No pericardial effusion. Left hemidiaphragm elevation is present new from prior imaging. Posterior gutter opacification on the left is present new from prior imaging. This is probably chronic atelectasis given the left hemidiaphragm elevation. Infiltrate or mass are considered unlikely. Trace left pleural effusion. The liver, spleen, and pancreas show no suspicious findings. Well filled gallbladder shows questionable wall thickening. Upper abdominal motion degradation limits assessment. The 10 millimeter gallstone is evident. Additional stones could be occult. No biliary tree dilatation. Duct stones can be occult. . Symmetric renal function is seen with no hydronephrosis or suspicious renal mass. No pyelonephritis or acute parenchymal process. A 2.5 centimeter lower pole left renal cyst is present. No urinary bladder abnormality. No adrenal abnormalities. No gastric dilatation or wall thickening. No small bowel abnormality seen. Acute colon process is not seen. Sigmoid colon is tortuous and redundant extending well into the upper left abdomen. No free air, free fluid or inflammatory stranding. No hernia, mass or bulky lymphadenopathy. No suspicious bony findings. Prominent aortic atherosclerotic calcifications are present. There is mural thrombus causing narrowing of the infrarenal aortic lumen. Significant left efrain ac stenoses present. IMPRESSION: No bowel obstruction, free air or surgically emergent finding. At least 1 gallstone is identified. Additional stones could be occult. Gallbladder wall thickening is suspected but limited in evaluation due to significant upper abdominal respiratory motion artifact. No biliary tree abnormality or pancreatic abnormality. Significant left hemidiaphragm elevation new from 2016. Posterior gutter opacification on the left is favored to be chronic atelectasis rather than mass or infiltrate. Prominent aortoiliac atherosclerotic calcifications with left-side iliac significant stenoses present. Medical problem list: Weakness secondary to rhabdomyolysis likely related to statin medication Increased falls due to above Acute renal injury likely dehydration Hypertension History of CHF Hyperlipidemia Cholelithiasis without cholecystitis Brief History of Present Illness: 69-year-old male with history of hypertension, CAD and hyperlipidemia. Patient evaluated due to progressive weakness and difficulty with ambulation. Patient found to have the rhabdomyolysis and CT showing multiple gallstones. Patient admitted for further evaluation and treatment. Hospital Course: Patient presented with weakness secondary to rhabdomyolysis. This was likely related to statin medication. Patient with acute renal injury as well. Patient received IV fluids. Patient seen and evaluated by nephrology. Patient required sodium bicarb min and aggressive IV fluid hydration. During the course of his stay his CPK improved. CPK remains elevated but trending down. At discharge patient able to ambulate. No significant pain noted. Case discussed with nephrology. Patient will continue with fluid hydration at home. Recommend to establish care with a PCP to follow up this hospitalization. Recommend to recheck lab-CMP and CPK in 1 week to monitor his progress. Recommend follow up with nephrology in 1-2 weeks to follow his progress. Patient was evaluated for cholelithiasis. HIDA scan unremarkable. Patient seen by surgery. Patient was empirically placed on antibiotic therapy. No evidence of cholecystitis noted. Cholelithiasis noted. At discharge patient has received over 7 days of antibiotic therapy. No need for antibiotic therapy at this time. Patient tolerating his diet. Patient may follow up with surgery as an outpatient to further address. Patient with hypertension. At discharge patient will continue with Norvasc 10 mg daily. Recommend to maintain blood pressure less 150/80. Further adjustment can be done by his PCP. Patient with hyperlipidemia. Recommend to discontinue statin medication due to rhabdomyolysis. This can be further monitored as an outpatient. Vital Signs/Physical Exam: Temp Pulse Resp BP Pulse Ox 99 F 80 16 133/68 96 01/11/20 08:00 01/11/20 08:58 01/11/20 08:00 01/11/20 08:58 01/11/20 08:00 General: Alert, In no apparent distress, Oriented x3, Cooperative HEENT: Atraumatic Neck: Supple Respiratory: Clear to auscultation bilaterally, Normal air movement Cardiovascular: Normal pulses, Regular rate/rhythm Gastrointestinal: Normal bowel sounds, Soft and benign, Non-distended, No masses, No rebound, No guarding Musculoskeletal: No tenderness, No warmth Integumentary: No erythema, No warmth, No cyanosis Neurological: Normal speech, Normal strength at 5/5 x4 extr, Normal tone, Normal affect Laboratory Data at Discharge: WBC 6.7 K/uL (4.3-10.9) D 01/07/20 03:54 Hgb 10.7 g/dL (13.6-17.9) L 01/07/20 03:54 Hct 34.0 % (39.6-49.0) L 01/07/20 03:54 Plt Count 314 K/uL (152-406) D 01/07/20 03:54 PT 13.9 SECONDS (9.5-12.5) H 01/04/20 21:00 INR 1.18 01/04/20 21:00 APTT 29.2 SECONDS (24.3-36.9) 01/04/20 21:00 Sodium 144 mmol/L (136-145) 01/11/20 04:07 Potassium 3.6 mmol/L (3.5-5.1) 01/11/20 04:07 BUN 6 mg/dL (7-18) L 01/11/20 04:07 Creatinine 0.39 mg/dL (0.55-1.3) L 01/11/20 04:07 Glucose 88 mg/dL (74-106) 01/11/20 04:07 Phosphorus 2.9 mg/dL (2.5-4.9) 01/10/20 04:34 Magnesium 2.1 mg/dL (1.8-2.4) 01/10/20 04:34 Total Bilirubin 0.4 mg/dL (0.2-1.0) 01/07/20 03:54 AST 78 U/L (15-37) H 01/07/20 03:54 ALT 119 U/L (12-78) H 01/07/20 03:54 Alkaline Phosphatase 55 U/L (45-117) 01/07/20 03:54 Troponin I 0.39 ng/mL (0.0-0.045) H 01/05/20 04:20 Lipase 117 U/L (73-393) 01/04/20 23:59 Home Medications: Amlodipine Besylate [Norvasc] 10 mg PO DAILY #30 tablet 01/07/20 Aspirin 81 mg PO DAILY #30 tab.chew 01/07/20 New Medications: Aspirin 81 mg PO DAILY #30 tab.chew Amlodipine Besylate [Norvasc] 10 mg PO DAILY #30 tablet Patient Discharge Instructions: 1. Recommend follow up with PCP in 1 week to follow up this hospitalization. 2. Patient presented with weakness secondary to rhabdomyolysis. This was likely related to statin medication. Patient with acute renal injury as well. Patient received IV fluids. Patient seen and evaluated by nephrology. Patient required sodium bicarb min and aggressive IV fluid hydration. During the course of his stay his CPK improved. CPK remains elevated but trending down. At discharge patient able to ambulate. No significant pain noted. Case discussed with nephrology. Patient will continue with fluid hydration at home. Recommend to establish care with a PCP to follow up this hospitalization. Recommend to recheck lab-CMP and CPK in 1 week to monitor his progress. Recommend follow up with nephrology in 1-2 weeks to follow his progress. 3. Patient was evaluated for cholelithiasis. HIDA scan unremarkable. Patient seen by surgery. Patient was empirically placed on antibiotic therapy. No evidence of cholecystitis noted. Cholelithiasis noted. At discharge patient has received over 7 days of antibiotic therapy. No need for antibiotic therapy at this time. Patient tolerating his diet. Patient may follow up with surgery as an outpatient to further address. 4. Patient with hypertension. At discharge patient will continue with Norvasc 10 mg daily. Recommend to maintain blood pressure less 150/80. Further adjustment can be done by his PCP. 5. Patient with hyperlipidemia. Recommend to discontinue statin medication due to rhabdomyolysis. This can be further monitored as an outpatient. Diet: Lawrence Activity: Fall precautions Followup: Merlin Limon MD [ACTIVE - CAN ADMIT] - Jose Armando Rodrigues MD [ACTIVE - CAN ADMIT] - Time spent managing pt's care (in minutes): 55
[2020-01-11 12:46] VITALS: BP 114/56; TEMP 97.5
--- NOTE | 2020-01-12 01:53 | PN ---
Date of Progress Note: 01/11/2020 Chief Complaint: Rhabdomyolysis status post fall. Subjective: Patient was found to have severe CPK elevation up to 3600. Patient was started on IV fluids to prevent worsening of the renal function and stabilize CPK level. Patient was on IV fluids and tolerated IV fluids. Review of Systems: Denies complaints. Physical Examination: Lungs: Clear to auscultation bilaterally. Heart: S1, S2. Abdomen: Soft, benign. Extremities: No edema. Laboratory Data: CK level 3678. Sodium level 144, potassium 3.6, chloride 111, CO2 27, BUN 6, creatinine 0.39, calcium 7.6. Impression And Plan: Rhabdomyolysis. CK level is improving from 4615 to 3678. Renal function remains in stable range and overall improved. Patient will advance p.o. intake. Plan is to monitor electrolytes and further workup status post fall will be conducted by primary team. Patient has multiple medical problems including history of congestive heart failure, hypertension, hyperlipidemia. Avoid nephrotoxic medication and hold statin medication due to ongoing rhabdomyolysis. STEPHON/DHARMESH Voice ID: [id number] Report ID: [id number] MTDD
== END 2020-01-11 13:45 | disposition home health service (06) | DRG 558 ==
LOC: ER 20:37 → ERHOLD 23:43 → 2ND 01-05 00:17
PROVIDERS: ADMIT Internal Medicine; ATTEND Family Medicine
DX: M62.82 Rhabdomyolysis (principal); N17.9 Acute kidney failure, unspecified; I50.22 Chronic systolic (congestive) heart failure; E86.0 Dehydration; E78.5 Hyperlipidemia, unspecified; I25.10 Atherosclerotic heart disease of native coronary artery without angina pectoris; K80.20 Calculus of gallbladder without cholecystitis without obstruction; Z79.899 Other long term (current) drug therapy; Z79.82 Long term (current) use of aspirin; I11.0 Hypertensive heart disease with heart failure; I25.2 Old myocardial infarction; Z60.2 Problems related to living alone; R94.31 Abnormal electrocardiogram [ECG] [EKG]; J02.0 Streptococcal pharyngitis; T50.995A Adverse effect of other drugs, medicaments and biological substances, initial encounter; R79.89 Other specified abnormal findings of blood chemistry; E87.6 Hypokalemia; W18.30XA Fall on same level, unspecified, initial encounter; Z91.81 History of falling
CPT/HCPCS: 36415; 71250; 74177; 76705; 78226; 80048; 80053; 80069; 80076; 81003; 81015; 82550; 82553; 82570; 82947; 83690; 83735; 83880; 84132; 84156; 84443; 84484; 85025; 85610; 85730; 87081; 87804; 93005; 96361; 96365; 97116; 97161; 97530; 99285; A9537; J0696; J1650; J1940; J7030; J7040; J7120; Q9967

== ENCOUNTER 2024-05-06 17:30 | Emergency (ER) | payer OTHER ==
[2024-05-06] MEDS ORDERED: NA CHLORIDE 0.9% 500 ML ONE ×2 (18:14→20:23)
[2024-05-06] MEDS ORDERED: PANTOPRAZOLE 40 MG INJ ONE (18:14)
[2024-05-06] MEDS ORDERED: NA CHLORIDE 0.9% 1,000 ML ONE (18:14)
[2024-05-06 18:17] LABS: Absolute Lymphocytes (CBC) 0.7 K/uL (0.7-4.9); Absolute Monocytes 1.2 K/uL (0.1-1.3); Hematocrit 25.6 % (39.6-49.0); Hemoglobin 6.7 g/dL (13.6-17.9); Lymphocytes % 4.5 % (15.3-44.8); MCH 14.5 pg (27.0-35.0); MCV 55.8 fL (80-100); MPV 9.4 fL (7.6-11.3); Monocytes % 7.8 % (3.3-12.3); Neutrophils % 87.7 % (41.7-73.7); Nucleated RBC Absolute Count 0.1 (0-0); Nucleated Red Blood Cells % 0.3 % (0-0); Platelets 330 thou/uL (152-406); RBC Red Blood Cell Count 4.59 M/uL (4.33-5.43); Red Cell Distribution Width 22.2 % (12.1-15.2)
[2024-05-06 18:20] LABS: Protime INR 1.63
[2024-05-06 18:22] LABS: Specific Gravity 1.025 (1.005-1.030); Sqamous Epithelial <5 /HPF (None Seen); Urine Bacteria <20 /HPF (<20); Urine Bilirubin 1+ (Negative); Urine Blood 3+ (OVER) (Negative); Urine Clarity Extremely Turbid (Clear); Urine Color Yellow (Yellow); Urine Culture Reflex Order NOT NEEDED; Urine Glucose NEGATIVE (Negative); Urine Ketones TRACE (Negative); Urine Microscopic Reflex YN ORDER UMIC; Urine Mucus 4+ /HPF (None Seen); Urine Nitrite NEGATIVE (Negative); Urine Protein 1+ (Negative); Urine Urobilinogen 2+ (Normal)
[2024-05-06 18:50] LABS: Albumin 2.7 g/dL (3.4-5.0); Albumin/Globulin Ratio 0.8 (1.1-1.8); Anion Gap 16.1 mEq/L (5.0-15.0); Bilirubin Direct 0.7 mg/dL (0-0.2); Bilirubin Indirect, Calculated 0.9 mg/dL (0.2-0.8); Bilirubin Total 1.6 mg/dL (0.2-1.0); Globulin 3.2 g/dL (2.3-3.5); Magnesium 2.7 mg/dL (1.6-2.4); Potassium 3.1 mEq/L (3.5-5.1); Protein, Total 5.9 g/dL (6.4-8.2)
[2024-05-06 18:57] LABS: Troponin High Sensitivity 21474.9 pg/mL (<58.9)
--- NOTE | 2024-05-06 19:21 | RAD REPORT ---
EXAM DESCRIPTION: CT - Chest Abd Pelvis Wo Con - 05/06/2024 6:52 pm CLINICAL HISTORY: Chest and abdominal pain TECHNIQUE: Computed axial tomography of the chest, abdomen and pelvis was obtained. Oral contrast wa s given. IV contrast was not requested. All CT scans are performed using dose optimization technique as appropriate and may include automated exposure control or mA/KV adjustment according to patient size. FINDINGS: The evaluation of mediastinum, andrew, vessels and solid organs is limited secondary to the lack of IV contrast administration Mild to moderate right lower lobe opacities. Elevation left hemidiaphragm with mild left lower lobe atelectasis No mediastinal or hilar lymphadenopathy is seen. Coronary arterial calcifications Tiny left small right pleural effusions. A pericardial effusion is not seen. Cholelithiasis Liver, spleen, pancreas, adrenals right kidney grossly normal. Left renal cysts. Atherosclerosis Diffuse edema within the subcutaneous tissues. Polk catheter the bladder. There is no evidence of diverticulitis. Colon caliber upper limits normal IMPRESSION: Mild to moderate right lower lobe opacities probably pneumonia Cholelithiasis without evidence of cholecystitis
--- NOTE | 2024-05-06 19:24 | RAD REPORT ---
EXAM DESCRIPTION: Roshni Single View05/06/2024 6:23 pm CLINICAL HISTORY: Cough COMPARISON: 2016 FINDINGS: Elevation left hemidiaphragm. Mild left basilar atelectasis Mild right lower lobe opacity probably pneumonia Heart is mildly enlarged Postsurgical changes involve chest
[2024-05-06 19:29] LABS: Anisocytosis 2+; Blood Morphology Comment NOTED (NOT SEEN); Hypochromasia 3+; Platelet Estimate ADEQ; White Blood Cell Scan OK (OK)
[2024-05-06 19:30] LABS: Poikilocytosis 2+
--- NOTE | 2024-05-06 19:33 | RAD REPORT ---
EXAM DESCRIPTION: USExtrem Venous W Compress Bil05/06/2024 7:17 pm CLINICAL HISTORY: Leg pain COMPARISON: none FINDINGS: Echogenic material consistent with acute thrombus present within right and left posterior tibial veins. Veins not compressible The common femoral, superficial femoral, greater saphenous, popliteal veins bilaterally are compressi ble and demonstrate augmentation. Doppler demonstrates good flow. Grayscale, color and spectral analysis performed on all vessels IMPRESSION: Acute thrombus involving the right and left posterior tibial veins
--- NOTE | 2024-05-06 19:38 | ER ---
Nurse's Notes Former[facility] Name: Jaskaran Rahman Age: 73 yrs Sex: Male : 1950 Arrival Date: 05/06/2024 Time: 17:30 Bed 2 Private MD: Diagnosis: Edema, unspecified;Pneumonia due to other specified bacteria-moderate right lower lobe;Hypokalemia;Non ST elevation [place];Anemia, unspecified;Weakness;Elevated white blood cell count;Hypotension, unspecified;Severe sepsis without septic shock;Acute embolism and thrombosis of deep veins of lower extremity-bilateral posterior tibial veins Presentation: 05/06 17:32 Chief complaint: EMS states: "toned out for being found on ground/unable to get up by 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 Pt initial BP 80/60 and 80% on RA. Nonrebreather placed on pt, and SPO2 increased to 98%. Pt states he has bilateral leg swelling for 1 month now.". Coronavirus screen: Vaccine status: Patient reports being unvaccinated. Ebola Screen: No symptoms or risks identified at this time. Initial Sepsis Screen: Does the patient meet any 2 criteria? No. Patient's initial sepsis screen is negative. Does the patient have a suspected source of infection? No. Patient's initial sepsis screen is negative. Risk Assessment: Do you want to hurt yourself or someone else? Patient reports no desire to harm self or others. Onset of symptoms was May 06, 2024. 17:32 Acuity: ADRYN 2 mb9 17:32 Method Of Arrival: EMS: [facility] mb9 Triage Assessment: 17:36 General: Appears unkempt, Behavior is cooperative. Pain: Denies pain. EENT: No signs mb9 and/or symptoms were reported regarding the EENT system. Neuro: Level of Consciousness is awake, alert, obeys commands, Oriented to person, place, time, situation, Appropriate for age. Cardiovascular: Denies chest pain, Patient's skin is warm and dry. Rhythm is sinus tachycardia. Respiratory: Airway is patent Respiratory effort is even, unlabored, Respiratory pattern is regular, symmetrical, Breath sounds are diminished bilaterally. Denies shortness of breath. GI: Abdomen is flat, non-distended, Bowel sounds present X 4 quads. Abd is soft and non tender X 4 quads. : No signs and/or symptoms were reported regarding the genitourinary system. Derm: Skin is fragile, is thin, Skin is dry, Skin is normal, Skin temperature is warm. Musculoskeletal: Range of motion: intact in all extremities. 17:36 Cardiovascular:. Cardiovascular: Pulses are 1+ in right posterior tibial artery, right mb9 dorsalis pedis artery, left posterior tibial artery and left dorsalis pedis artery. Cardiovascular: Edema is 4+ to left midcalf, left ankle, right midcalf and right ankle. Musculoskeletal: Swelling. Historical: - Allergies: 17:35 No Known Allergies; mb9 - Home Meds: 17:35 Unable to obtain [Active]; mb9 - PMHx: 17:35 Hypertensive disorder; mb9 - PSHx: 17:35 cardiac bypass; mb9 - Immunization history:: Adult Immunizations up to date. - Infectious Disease History:: Denies. - Social history:: Smoking status: Patient/guardian denies using tobacco. Screenin:38 [facility] ED Fall Risk Assessment (Adult) History of falling in the last 3 months, mb9 including since admission No falls in past 3 months (0 pts) Confusion or Disorientation No (0 pts) Intoxicated or Sedated No (0 pts) Impaired Gait No (0 pts) Mobility Assist Device Used No (0 pt) Altered Elimination No (0 pt) Score/Fall Risk Level 0 - 2 = Low Risk Oriented to surroundings, Maintained a safe environment, Educated pt \\T\\ family on fall prevention, incl call for assistance when getting out of bed. Abuse screen: Denies threats or abuse. Nutritional screening: No deficits noted. Tuberculosis screening: No symptoms or risk factors identified. Assessment: 17:44 General: Appears in no apparent distress. comfortable, Behavior is calm, cooperative, ld1 appropriate for age. Pain: Denies pain. Neuro: Level of Consciousness is awake, alert, obeys commands, Oriented to person, place, time, situation. Cardiovascular: Capillary refill < 3 seconds Patient's skin is warm and dry. Respiratory: Airway is patent Respiratory effort is even, unlabored. GI: Abdomen is flat, non-distended. : No signs and/or symptoms were reported regarding the genitourinary system. EENT: No signs and/or symptoms were reported regarding the EENT system. Derm: No signs and/or symptoms reported regarding the dermatologic system. Musculoskeletal: No signs and/or symptoms reported regarding the musculoskeletal system. 19:05 General: Appears comfortable, Behavior is calm, cooperative, appropriate for age. rg5 19:05 Pain: Denies pain. Neuro: Level of Consciousness is awake, alert, obeys commands, rg5 Oriented to person, place, time, situation. Cardiovascular: Denies chest pain, Capillary refill < 3 seconds Patient's skin is warm and dry. Rhythm is sinus tachycardia. Respiratory: Airway is patent Respiratory effort is even, unlabored, Respiratory pattern is regular, symmetrical. GI: Abdomen is flat, non-distended. : Denies pain. EENT: No deficits noted. Derm: Skin swelling on both lower extremities. Musculoskeletal: Range of motion: intact in all extremities, Swelling present in right leg and left leg. 20:00 Reassessment: No changes from previously documented assessment. Patient and/or family rg5 updated on plan of care and expected duration. Pain level reassessed. Patient is alert, oriented x 3, equal unlabored respirations, skin warm/dry/pink. 21:07 General: MOT received from [facility]. vc1 22:00 Reassessment: No changes from previously documented assessment. Patient and/or family rg5 updated on plan of care and expected duration. Pain level reassessed. Patient is alert, oriented x 3, equal unlabored respirations, skin warm/dry/pink. 23:05 Reassessment: No changes from previously documented assessment. Patient and/or family rg5 updated on plan of care and expected duration. Pain level reassessed. Patient is alert, oriented x 3, equal unlabored respirations, skin warm/dry/pink. Vital Signs: 17:32 BP 94 / 57; Pulse 100; Resp 15; Pulse Ox 100% on R/A; Weight 65.77 kg; Height 5 ft. 5 mb9 in. ; 17:44 BP 112 / 46; Pulse 99; Resp 18; Pulse Ox 99% on R/A; ld1 18:25 BP 97 / 63; Pulse 109; Resp 20; Temp 97.3(TE); Pulse Ox 100% on R/A; ld1 19:05 BP 97 / 54; Pulse 98; Resp 19; Temp 97.9; Pulse Ox 99% on R/A; Pain 0/10; rg5 20:17 BP 111 / 59; Pulse 99; Resp 19; Temp 98(O); Pulse Ox 98% on R/A; Pain 0/10; rg5 22:28 BP 97 / 58; Pulse 92; Resp 19; Temp 98; Pain 0/10; rg5 23:45 BP 118 / 80; Pulse 76; Resp 17; Temp 98; Pulse Ox 100% on 3 lpm NC; Pain 0/10; rg5 17:32 Body Mass Index 24.13 (65.77 kg, 165.1 cm) mb9 19:05 Pain Scale: Adult rg5 20:17 Pain Scale: Adult rg5 22:28 Pain Scale: Adult rg5 23:45 Pain Scale: Adult rg5 ED Course: 17:32 Patient arrived in ED. mb9 17:32 Arm band placed on. mb9 17:35 Triage completed. mb9 17:36 Bernabe Farias MD is Attending Physician. [facility] 17:36 EKG done, by mathematical technician. reviewed by Bernabe Farias MD. oh1 17:38 Maintain EMS IV. Dressing intact. Good blood return noted. Site clean \\T\\ dry. Gauge \\T\\ mb 9 site: 22 g right wrist. Flushed with 10 mL NS. 17:42 Barbara Otero, RN is Primary Nurse. ld1 17:44 Patient has correct armband on for positive identification. Placed in gown. Bed in low ld1 position. Call light in reach. Side rails up X2. school lunch monitor on. Pulse ox on. NIBP on. Door closed. Noise minimized. Warm blanket given. 17:44 No provider procedures requiring assistance completed. Inserted saline lock: 20 gauge ld1 in right antecubital area, using aseptic technique. Blood collected. Flushed with 10 mL NS. 17:45 First set of blood cultures drawn by wa. zm 18:00 Initial lab(s) drawn, by wa, sent to lab. Second set of blood cultures drawn by wa. zm 18:12 Polk cath inserted, using sterile technique, 18 Fr., by ED staff, balloon inflated, to zm gravity drainage, urine specimen collected. returned adam urine. Patient tolerated well. 18:13 Packed RBC Leukored Sent. zm 18:13 Bb Add On Sent. zm 18:13 Urinalysis w/ reflexes Sent. zm 18:13 Lactate w/ 2H reflex if indic. Sent. zm 18:13 Blood Culture Adult (2) Sent. zm 18:13 Type And Screen Sent. zm 18:13 Lipase Sent. zm 18:13 Basic Metabolic Panel Sent. zm 18:13 CBC with Diff Sent. zm 18:13 LFT's Sent. zm 18:13 Magnesium Sent. zm 18:13 NT PRO-BNP Sent. zm 18:13 PT-INR Sent. zm 18:14 Troponin HS Sent. zm 18:22 Urinalysis w/ reflexes Sent. ld1 18:23 Lactate w/ 2H reflex if indic. Sent. ld1 18:23 Blood Culture Adult (2) Sent. ld1 18:23 Type And Screen Sent. ld1 18:25 XRAY Chest (1 view) In Process Unspecified. EDMS 18:54 CT Chest Abdomen Pelvis W/O Contrast In Process Unspecified. EDMS 19:04 Report given to LILLIAM Peterson. mb9 19:19 US Extremity Venous W Compression Narinder In Process Unspecified. EDMS 20:45 Attending Physician role handed off by Bernabe Farias MD sp4 20:45 Alverto Phan MD is Attending Physician. sp4 20:47 Bernabe Farias MD is Attending Physician. [facility] 21:00 Provided Education on: Blood Transfusion, Procedure Consent. rg5 21:30 Inserted saline lock: 20 gauge in left forearm, using aseptic technique. Blood rg5 collected. Flushed with 10 mL NS. 22:11 Chest Single View XRAY In Process Unspecified. EDMS 23:01 Patient transferred, IV remains in place. rg5 23:06 transfer transportation to receiving facility. rg5 Administered Medications: 19:32 Discontinued: ns 0.9% 1000 ml IV at 75 ml/hr continuous viktor 17:55 Drug: NS 0.9% IV 500 ml IV at bolus once Route: IV; Rate: bolus; Site: right ld1 antecubital; 19:05 Drug: NS 0.9% IV 1000 ml IV at 75 ml/hr continuous Route: IV; Rate: 75 ml/hr; Site: rg5 right antecubital; 19:37 Follow up: Response: No adverse reaction; IV Status: Order to discontinue infusion; IV rg5 Intake: 50ml 19:44 Drug: Piperacillin-Tazobactam IVPB 3.375 grams IVPB once over 60 mins; (mix in NS 100 rg5 mL) Route: IVPB; Infused Over: 60 mins; Site: right hand; 20:20 Follow up: Response: No adverse reaction; IV Status: Completed infusion; IV Intake: rg5 100ml 19:44 Drug: NS 0.9% with KCl IV 20 mEq/L 1000 ml IV at 75 ml/hr continuous Route: IV; Rate: rg5 75 ml/hr; Site: right antecubital; 22:20 Drug: Heparin ([place]-Bolus No thrombolytic) - HEParin IVP 60 units/kg IVP once; Max 5000 rg5 units {Co-Signature: 1 (Aretha Daniel RN).} Route: IVP; Site: left forearm; 23:00 Follow up: Response: No adverse reaction rg5 22:21 Drug: Heparin ([place] Drip) 12 units/kg/[place] - ([place] [address] units, D5W IV 500 ml) IV at rg5 calculated rate Per protocol; Max initial rate 1000 units/hr {Co-Signature: 1 (Aretha Daniel RN).} Route: IV; Rate: calculated rate; Site: left forearm; 22:23 Drug: Aspirin PO Chewable Tablet 81 mg PO once Route: PO; rg5 22:59 Follow up: Response: No adverse reaction rg5 Medication: 19:10 VIS not applicable for this client. rg5 Intake: 19:37 IV: 50ml; Total: 50ml. rg5 20:20 IV: 100ml; Total: 150ml. rg5 Outcome: 19:37 ER care complete, transfer ordered by . viktor 23:54 Transferred by ground EMS [place] [facility] [facility] [place] 23:54 Condition: stable 23:54 Discharge instructions given to EMS, 23:55 Patient left the ED. rg5 Signatures: Dispatcher [employer] EDBernabe Hedrick MD MD cha Sims, Lauren RN RN ld1 Aretha Daniel RN RN 1 Roseline Pryor Mary Beth RN RN Alverto Farooq MD MD sp4 Rich Keane RN RN rg5 Shanelle Mack oh1 Aretha Daniel RN vc1
--- NOTE | 2024-05-06 19:38 | EDPHYS ---
Physician Documentation [facility] Name: Jaskaran Rahman Age: 73 yrs Sex: Male : 1950 Arrival Date: 05/06/2024 Time: 17:30 Bed 2 Private MD: ED Physician Bernabe Farias HPI: 05/06 17:51 This 73 yrs old Male presents to ER via EMS with complaints of Shortness Of viktor Breath, Feet Swelling. 17:51 The patient has shortness of breath at rest. Onset: The symptoms/episode began/occurred viktor 3 day(s) ago. Duration: The symptoms are continuous, and are steadily getting worse. The patient's shortness of breath has no apparent modifying factors. Severity of symptoms: At their worst the symptoms were moderate in the emergency department the symptoms are unchanged. It is unknown whether or not the patient has had similar symptoms in the past. Historical: - Allergies: 17:35 No Known Allergies; mb9 - Home Meds: 17:35 Unable to obtain [Active]; mb9 - PMHx: 17:35 Hypertensive disorder; mb9 - PSHx: 17:35 cardiac bypass; mb9 - Immunization history:: Adult Immunizations up to date. - Infectious Disease History:: Denies. - Social history:: Smoking status: Patient/guardian denies using tobacco. ROS: 17:51 Eyes: Negative for injury, pain, redness, and discharge, ENT: Negative for injury, viktor pain, and discharge, Neck: Negative for injury, pain, and swelling, Abdomen/GI: Negative for abdominal pain, nausea, vomiting, diarrhea, and constipation, Back: Negative for injury and pain, : Negative for injury, bleeding, discharge, and swelling, MS/Extremity: Negative for injury and deformity, Neuro: Negative for headache, weakness, numbness, tingling, and seizure, 17:51 Constitutional: Positive for fatigue, malaise, 17:51 Cardiovascular: Positive for palpitations, 17:51 Respiratory: Positive for shortness of breath, at rest. 17:51 Abdomen/GI: Negative for hematemesis, black/tarry stool, rectal bleeding, 17:51 Skin: Positive for pallor, 17:51 Neuro: Negative for altered mental status, Exam: 17:51 Head/Face: Normocephalic, atraumatic. ENT: Nares patent. No nasal discharge, no viktor septal abnormalities noted. Tympanic membranes are normal and external auditory canals are clear. Oropharynx with no redness, swelling, or masses, exudates, or evidence of obstruction, uvula midline. Mucous membranes moist. Neck: Trachea midline, no thyromegaly or masses palpated, and no cervical lymphadenopathy. Supple, full range of motion without nuchal rigidity, or vertebral point tenderness. No Meningismus. Chest/axilla: Normal chest wall appearance and motion. Nontender with no deformity. No lesions are appreciated. Abdomen/GI: Soft, non-tender, with normal bowel sounds. No distension or tympany. No guarding or rebound. No evidence of tenderness throughout. Back: No spinal tenderness. No costovertebral tenderness. Full range of motion. Male : Normal genitalia with no discharge or lesions. Neuro: Awake and alert, GCS 15, oriented to person, place, time, and situation. Cranial nerves II-XII grossly intact. Motor strength 5/5 in all extremities. Sensory grossly intact. Cerebellar exam normal. Normal gait. Psych: Awake, alert, with orientation to person, place and time. Behavior, mood, and affect are within normal limits. 17:51 Constitutional: The patient appears frail, 17:51 Cardiovascular: Rate: tachycardic, actual rate is 105 bpm, Heart sounds: normal, JVD: is not appreciated, 17:51 ECG was reviewed by the Attending Physician. 17:55 Abdomen/GI: Inspection: abdomen appears normal, Bowel sounds: normal, Palpation: viktor nontender, Rectal exam: rectal tone stenosis, swelling, is not appreciated, fecal impaction, is not appreciated, no blood, no melena. Liver: no appreciated palpable abnormalities, Hernia: not appreciated, 17:55 Musculoskeletal/extremity: Extremities: grossly normal except: pain, swelling, noted in the right leg: swelling, ROM: full active range of motion, full passive range of motion, Circulation is intact in all extremities. Sensation intact. Compartment Syndrome exam of affected extremity: is normal. DVT Exam: negative Homans' sign noted on exam, no appreciated bluish discoloration, no erythema, no increased warmth, swelling, tenderness, 17:55 Skin: Appearance: Color: pale, Temperature: normal temperature, Moisture: dry, 17:55 Neuro: Orientation: is normal, appropriate for stated age, no acute changes, Mentation: no acute changes, Memory: is normal, Cranial nerves: grossly normal, is grossly normal based on the patient's age, no acute changes, Gait: not tested. seizure activity, is not displayed by the patient, 19:54 ECG was reviewed by the Attending Physician. [facility] Vital Signs: 17:32 BP 94 / 57; Pulse 100; Resp 15; Pulse Ox 100% on R/A; Weight 65.77 kg; Height 5 ft. 5 mb9 in. ; 17:44 BP 112 / 46; Pulse 99; Resp 18; Pulse Ox 99% on R/A; ld1 18:25 BP 97 / 63; Pulse 109; Resp 20; Temp 97.3(TE); Pulse Ox 100% on R/A; ld1 19:05 BP 97 / 54; Pulse 98; Resp 19; Temp 97.9; Pulse Ox 99% on R/A; Pain 0/10; rg5 20:17 BP 111 / 59; Pulse 99; Resp 19; Temp 98(O); Pulse Ox 98% on R/A; Pain 0/10; rg5 22:28 BP 97 / 58; Pulse 92; Resp 19; Temp 98; Pain 0/10; rg5 23:45 BP 118 / 80; Pulse 76; Resp 17; Temp 98; Pulse Ox 100% on 3 lpm NC; Pain 0/10; rg5 17:32 Body Mass Index 24.13 (65.77 kg, 165.1 cm) mb9 19:05 Pain Scale: Adult rg5 20:17 Pain Scale: Adult rg5 22:28 Pain Scale: Adult rg5 23:45 Pain Scale: Adult rg5 Procedures: 22:03 Central Line: the site was prepped with Betadine, in sterile fashion, a triple lumen sp4 catheter was inserted, in the left internal jugular vein, in 1 attempts. placement was verified, by CXR, by blood return, Ultrasound guided central line , the site was dressed with 4X4s, Tegaderm, using sterile technique, the patient tolerated the procedure, well, Placed for septic shock and NSTEMI. MDM: 17:36 Patient medically screened. viktor 17:58 Differential diagnosis: contusion, abrasion, tendonitis, Anemia CHF exacerbation, viktor pulmonary edema, Pulmonary Embolism reactive airway disease. Differential Diagnosis altered mental status, sepsis, flu. Immunization status: Pneumococcal vaccine: within last 5 years. Influenza vaccine: within last 5 years. Data reviewed: vital signs, nurses notes, lab test result(s), EKG, radiologic studies, CT scan, plain films. Consideration of Admission/Observation Patient was admitted/placed on observation. Escalation of care including admission/observation considered. I considered the following discharge prescriptions or medication management in the emergency department Medications were administered in the Emergency Department. See MAR. Independent interpretation of the following test(s) in the Emergency Department EKG: See my EKG interpretation above. Test considered but Not performed: Ultrasound no abd usg. 05/06 17:50 Order name: Type And Screen [facility] 05/06 17:50 Order name: Basic Metabolic Panel; Complete Time: 19: [facility] 05/06 17:50 Order name: CBC with Diff; Complete Time: 19:37 [facility] 05/06 17:50 Order name: LFT's; Complete Time: 19: [facility] 05/06 17:50 Order name: Magnesium; Complete Time: 19: [facility] 05/06 17:50 Order name: NT PRO-BNP; Complete Time: 19: [facility] 05/06 17:50 Order name: PT-INR; Complete Time: 19: [facility] 05/06 17:50 Order name: Troponin HS; Complete Time: 19: [facility] 05/06 17:50 Order name: Lipase; Complete Time: 19: [facility] 05/06 17:50 Order name: Blood Culture Adult (2) [facility] 05/06 17:50 Order name: Lactate w/ 2H reflex if indic.; Complete Time: 19:07 [facility] 05/06 17:50 Order name: Urinalysis w/ reflexes; Complete Time: 19:07 [facility] 05/06 17:53 Order name: Bb Add On bd 05/06 17:55 Order name: Packed RBC Leukored [facility] 05/06 19:30 Order name: CBC Smear Scan; Complete Time: 19:37 [facility] 05/06 19:43 Order name: SARS RAPID; Complete Time: 20:25 [facility] 05/06 19:43 Order name: Flu; Complete Time: 20:25 [facility] 05/06 19:46 Order name: ABO/RH no charge; Complete Time: 20:25 [facility] 05/06 20:57 Order name: Ghost Lactate-NO COLLECT Timer [facility] 05/06 22:42 Order name: Lactate Sepsis 2 HR Follow-up [facility] 05/06 17:50 Order name: XRAY Chest (1 view); Complete Time: 19:30 [facility] 05/06 17:50 Order name: CT Chest Abdomen Pelvis W/O Contrast; Complete Time: 19:30 [facility] 05/06 18:00 Order name: US Extremity Venous W Compression Narinder; Complete Time: 19:37 [facility] 05/06 22:02 Order name: Chest Single View XRAY [facility] 05/06 19:39 Order name: EKG; Complete Time: 19:40 [facility] 05/06 17:50 Order name: Cardiac monitoring; Complete Time: 17:54 [facility] 05/06 17:50 Order name: EKG - Nurse/Tech; Complete Time: 17:54 [facility] 05/06 17:50 Order name: IV Saline Lock; Complete Time: 17:53 [facility] 05/06 17:50 Order name: Labs collected and sent; Complete Time: 17:53 [facility] 05/06 17:50 Order name: O2 Per Protocol; Complete Time: 17:53 [facility] 05/06 17:50 Order name: O2 Sat Monitoring; Complete Time: 17:53 [facility] 05/06 17:50 Order name: IV Saline Lock - Large Bore; Complete Time: 17:53 [facility] 05/06 17:50 Order name: Polk; Complete Time: 18:13 [facility] 05/06 19:39 Order name: EKG - Nurse/Tech; Complete Time: 20:20 [facility] 05/06 20:02 Order name: Transfuse; Complete Time: 22:27 [facility] 05/06 22:00 Order name: Central Line Dressing Kit; Complete Time: 22:23 [facility] 05/06 22:00 Order name: Central Line Kit; Complete Time: 22: [facility] 05/06 22:00 Order name: Chlorhexidine prep; Complete Time: 22:23 [facility] 05/06 22:00 Order name: Consent for central line completed; Complete Time: : [facility] 05/06 22:00 Order name: Line Caps x3; Complete Time: : [facility] 05/06 22:00 Order name: NS Flushes x3; Complete Time: 22:23 4 05/06 22:00 Order name: Sterile Gloves; Complete Time: 22:23 [facility] 05/06 22:00 Order name: Sterile Probe Cover; Complete Time: 22:23 sp4 EC:51 Rate is 105 beats/min. Rhythm is regular. QRS [place] is Normal. NH interval is normal. viktor QRS interval is normal. QT interval is normal. No Q waves. T waves are Normal. No ST changes noted. Clinical impression: NSR w/ Non-specific ST/T Changes. Interpreted by me. Reviewed by me. 19:54 Rate is 106 beats/min. Rhythm is regular. QRS [place] is Normal. NH interval is normal. viktor QRS interval is normal. QT interval is normal. No Q waves. T waves are Normal in leads aVL, V2, V3, V4, V5, V6. Clinical impression: Abnormal EKG without significant change and Sinus tachycardia. Interpreted by me. Reviewed by me. Administered Medications: 19:32 Discontinued: ns 0.9% 1000 ml IV at 75 ml/hr continuous viktor 17:55 Drug: NS 0.9% IV 500 ml IV at bolus once Route: IV; Rate: bolus; Site: right ld1 antecubital; 19:05 Drug: NS 0.9% IV 1000 ml IV at 75 ml/hr continuous Route: IV; Rate: 75 ml/hr; Site: rg5 right antecubital; 19:37 Follow up: Response: No adverse reaction; IV Status: Order to discontinue infusion; IV rg5 Intake: 50ml 19:44 Drug: Piperacillin-Tazobactam IVPB 3.375 grams IVPB once over 60 mins; (mix in NS 100 rg5 mL) Route: IVPB; Infused Over: 60 mins; Site: right hand; 20:20 Follow up: Response: No adverse reaction; IV Status: Completed infusion; IV Intake: rg5 100ml 19:44 Drug: NS 0.9% with KCl IV 20 mEq/L 1000 ml IV at 75 ml/hr continuous Route: IV; Rate: rg5 75 ml/hr; Site: right antecubital; 22:20 Drug: Heparin (IN-Bolus No thrombolytic) - HEParin IVP 60 units/kg IVP once; Max 5000 rg5 units {Co-Signature: vc1 (Aretha Daniel RN).} Route: IVP; Site: left forearm; 23:00 Follow up: Response: No adverse reaction rg5 22:21 Drug: Heparin (IN Drip) 12 units/kg/[place] - ([place] [address] units, D5W IV 500 ml) IV at rg5 calculated rate Per protocol; Max initial rate 1000 units/hr {Co-Signature: vc1 (Aretha Daniel RN).} Route: IV; Rate: calculated rate; Site: left forearm; 22:23 Drug: Aspirin PO Chewable Tablet 81 mg PO once Route: PO; rg5 22:59 Follow up: Response: No adverse reaction rg5 Disposition: 21:00 Critical Care:. viktor Disposition Summary: 05/06/24 19:37 Transfer Ordered Notes: Transfer Location: [facility] viktor Reason: Higher level of care viktor Condition: Serious viktor Problem: an acute exacerbation viktor Symptoms: are unchanged viktor Accepting Physician: to [facility] icu/ccu(05/06/24 23:55) rg5 Diagnosis - Edema, unspecified viktor - Pneumonia due to other specified bacteria - moderate right lower lobe viktor - Hypokalemia viktor - Non ST elevation IN viktor - Anemia, unspecified viktor - Weakness viktor - Elevated white blood cell count viktor - Hypotension, unspecified viktor - Severe sepsis without septic shock viktor - Acute embolism and thrombosis of deep veins of lower extremity - bilateral viktor posterior tibial veins Forms: - Medication Reconciliation Form viktor - SBAR form viktor Critical care time excluding procedures: 21:00 Critical care time: Bedside Care: 30 minutes, Consultation: 15 minutes, Family viktor Intervention: 10 minutes. Total time: 55 minutes Signatures: Dispatcher [employer] EDBernabe Hedrick MD MD cha Sims, Lauren, RN RN ld1 Brunilda Ji RN RN mb9 Alverto Phan MD MD sp4 Rich Keane RN RN rg5 Aretha Daniel RN vc1 Corrections: (The following items were deleted from the chart) 17:51 17:51 BASIC METABOLIC PANEL+C.LAB.BRZ ordered. EDMS EDMS 17:51 17:51 CBC+H.LAB.BRZ ordered. EDMS EDMS 17:51 17:51 HEPATIC FUNCTION+C.LAB.BRZ ordered. EDMS EDMS 17:51 17:51 MAGNESIUM+C.LAB.BRZ ordered. EDMS EDMS 17:51 17:51 PROBNP+C.LAB.BRZ ordered. EDMS EDMS 17:51 17:51 PROTIME (+INR)+COAG.LAB.BRZ ordered. EDMS EDMS 17:51 17:51 Troponin High Sensitivity+C.LAB.BRZ ordered. EDMS EDMS 17:51 17:51 LIPASE+C.LAB.BRZ ordered. EDMS EDMS 17:51 17:51 TYPE AND SCREEN+BB.LAB.BRZ ordered. EDMS EDMS 17:51 17:51 BLOOD CULTURE*+BA.LAB.BRZ ordered. EDMS EDMS 17:51 17:51 LACTATE+C.LAB.BRZ ordered. EDMS EDMS 17:51 17:51 Urinalysis+U.LAB.BRZ ordered. EDMS EDMS 17:51 17:51 Chest Single View+RAD.RAD.BRZ ordered. EDMS EDMS 17:51 17:51 Chest Abdomen Pelvis Wo Con+CT.RAD.BRZ ordered. EDMS EDMS 19:39 19:37 to [facility] icu/ccu [facility] 22:02 22:02 Chest Single View+RAD.RAD.BRZ ordered. EDMS EDMS 23:55 19:39 to [facility] icu/ccu [facility] rg5
[2024-05-06] MEDS ORDERED: NA CHLORIDE 0.9% 100 ML ONE (19:41)
[2024-05-06] MEDS ORDERED: NS KCL 20MEQ 1,000 ML IV ONE (19:41)
[2024-05-06] MEDS ORDERED: PIPERACIL/TAZO 3.375 GM VIAL IV ONE (19:42)
[2024-05-06 20:16] LABS: SARS-CoV-2 Antigen CONTROL BLUE LINE VIS/BG OK; SARS-CoV-2 Antigen Rapid Res Negative (Negative)
[2024-05-06] MEDS ORDERED: ASPIRIN 81 MG CHEWABLE TABLET ONE (21:22)
[2024-05-06] MEDS ORDERED: HEPARIN/D5W 25,000 UNIT/500 ML BAG IV ONE (21:25)
[2024-05-06] MEDS ORDERED: HEPARIN 5000 UNIT/ML 1 ML VIAL ONE (21:25)
--- NOTE | 2024-05-06 22:17 | RAD REPORT ---
EXAM DESCRIPTION: [place] Single View05/06/2024 10:09 pm CLINICAL HISTORY: Device placement/central venous catheter placement IMPRESSION: Central venous catheter has been placed with its tip in the junction of the SVC and righ t atrium No pneumothorax
[2024-05-07 00:37] VITALS: TEMP 98; O2SAT 98
[2024-05-07 00:38] VITALS: BP 97/58
== END 2024-05-06 23:55 | disposition short-term general hospital (02) ==
LOC: ER 17:30
PROC: 30233N1 Transfusion of Nonautologous Red Blood Cells into Peripheral Vein, Percutaneous Approach (ICD-10-PCS; principal; 2024-05-06)
PROC: 05HN33Z Insertion of Infusion Device into Left Internal Jugular Vein, Percutaneous Approach (ICD-10-PCS; 2024-05-06)
DX: J15.8 Pneumonia due to other specified bacteria (principal); R65.20 Severe sepsis without septic shock; I21.4 Non-ST elevation (NSTEMI) myocardial infarction; E87.6 Hypokalemia; I95.9 Hypotension, unspecified; D64.9 Anemia, unspecified; I82.443 Acute embolism and thrombosis of tibial vein, bilateral; R60.9 Edema, unspecified; R53.1 Weakness; D72.829 Elevated white blood cell count, unspecified; I10 Essential (primary) hypertension; Z95.1 Presence of aortocoronary bypass graft; Z11.52 Encounter for screening for COVID-19
CPT/HCPCS: 87040 ×2; 85025; 81001; 80048; 36415; 86900; 83735; 86850; 85610; 86901; 80076; 83605 ×2; 86920 ×2; 84484; 83690; 83880; 87804 ×2; 71250; 74176; 71045 ×2; 93970; 87811; 36430; 36556; J1644; J2543; J2470; P9016 ×2; J7050; J7040; J7030; J3480; 93005